=== PATIENT | male | born 1945 | race Caucasian/White ===

== ENCOUNTER 2021-02-07 15:15 | Emergency (ER) | payer MEDICARE, OTHER, SELFPAY ==
[2021-02-07] VITALS (9 sets, daily range): BP systolic 125–159; BP diastolic 66–86; PULSE 83–114; RESP 13–33; TEMP 36.9; O2SAT 95–100; BMI 25.8
--- NOTE | 2021-02-07 15:26 | DI.RAD.S_ITS ---
PROCEDURE: XR CHEST 1V INDICATIONS: dyspnea TECHNIQUE: One view of the chest was acquired. COMPARISON: None. FINDINGS: Surgical changes and devices: None. Lungs and pleura: Subtle bilateral lower lung zone hazy opacities/ground-glass opacities. No focal consolidations. No pleural effusions or pneumothorax. Mediastinum: Mediastinal contours appear normal. Heart size is normal. Bones and chest wall: No suspicious bony lesions. Overlying soft tissues appear unremarkable. IMPRESSION: Subtle bilateral lower lung zone hazy opacities which may represent atelectasis. An infectious or inflammatory process not excluded if clinically appropriate. Early developing pulmonary edema may have a similar appearance. No focal consolidation identified. Dictated by: Christian Hi M.D. on 02/07/2021 at 15:54 Approved by: Christian Hi M.D. on 02/07/2021 at 15:57
--- NOTE | 2021-02-07 15:28 | ED.ARRPALP ---
HPI - Arrhythmia/Palpitations General Chief Complaint: Arrhythmia/Palpitations Stated Complaint: racing heart, SOB, weakness Time Seen by Provider: 02/07/21 15:20 Source: patient Mode of arrival: Wheelchair History of Present Illness HPI narrative: 75-year-old male nonsmoker with reported history of atrial fibrillation presents from it walking clinic in [place] for evaluation of 4 days of dyspnea. He has had no runny nose, sore throat nor fever or chills. He denies any cough. He has had no chest pain or palpitations but does report a racing heart rate. Exertion makes him feel short of breath. He has had no nausea, vomiting or diarrhea. He went to an outside clinic is was found to be in a rapid atrial fibrillation. Patient is not anticoagulated but has had a Watchman procedure. He is chronically in atrial fibrillation and on arrival is dyspneic with heart rate in the 120s Related Data Home Medications Medication Instructions Recorded Confirmed hydrochlorothiazide 12.5 mg tablet 12.5 mg PO DAILY 02/08/21 02/08/21 hydrocodone 5 mg-acetaminophen 325 1 tab PO BID 02/08/21 02/08/21 mg tablet losartan 50 mg tablet 50 mg PO BID 02/08/21 02/08/21 metoprolol succinate 25 mg 50 mg PO DAILY 02/08/21 02/08/21 tablet,extended release 24 hr pramipexole 0.25 mg tablet 0.25 mg PO BID 02/08/21 02/08/21 protriptyline 10 mg tablet 10 mg PO BID 02/08/21 02/08/21 Previous Rx's Medication Instructions Recorded furosemide 40 mg tablet (Lasix) 40 mg PO DAILY #5 tab 02/07/21 Allergies Allergy/AdvReac Type Severity Reaction Status Date / Time No Known Drug Allergies Allergy Verified 02/07/21 15:26 Review of Systems Review of Systems Narrative: GENERAL: Denies chills, fatigue, malaise, fever, sweats. HEENT: Denies sinus pain, ear pain, sore throat, difficulty swallowing, dizziness. RESPIRATORY: Denies dyspnea, cough, wheezing, hemoptysis, sputum. CARDIOVASCULAR: See HPI GASTROINTESTINAL: See HPI : Denies dysuria, frequency, incontinence, hematuria, urinary retention. MUSCULOSKELETAL: denies weakness, joint pain, or bony pain SKIN: Denies rash, skin lesions, or other NEUROLOGIC: Denies weakness, headache, numbness, change in speech, confusion, seizures, incoordination. PSYCHIATRIC: No concerning psychosocial issues. 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 Essential hypertension GERD (gastroesophageal reflux disease) History of stroke associated with blood clotting tendency Lumbar compression fracture Obstructive sleep apnea on CPAP Restless leg syndrome Surgical History (Updated 02/08/21 @ 22:12 by MALOLRIE Yuan) History of left heart catheterization Presence of Watchman left atrial appendage closure device Family History Father Emphysema lung Mother Diabetes mellitus Social History household members: spouse Smoking Status: Never smoker alcohol intake: current Smoking Status: Unknown if ever smoked alcohol intake frequency: holidays/special occasions only Substance Use Type: does not use Exam Narrative Exam Narrative: GENERAL: [75] year old patient appears stated age. Well-developed patient, in mild distress. HEAD: Atraumatic. Normocephalic. EYES: Pupils equal round and reactive. Extraocular motions intact. No scleral icterus. No injection or drainage. ENT: Nose without bleeding, purulent drainage. Throat without erythema, tonsillar hypertrophy or exudate. Airway patent. NECK: Trachea midline. Non tender CARDIOVASCULAR: Rapid and irregular rhythm without murmurs, gallops, or rubs. RESPIRATORY: Clear to auscultation. Breath sounds equal bilaterally. No wheezes, rales, or rhonchi. GASTROINTESTINAL: Abdomen soft, non-tender, nondistended. EXTREMITIES: No edema or joint tenderness. BACK: Nontender without deformity or crepitance. No flank tenderness. NEURO: AOx3. SKIN: No rash or erythema of visible areas Initial Vital Signs Initial Vital Signs: Vital Signs Temperature 98.4 F 02/07/21 15:20 Pulse Rate 108 H 02/07/21 15:20 Respiratory Rate 22 02/07/21 15:20 Blood Pressure 143/84 H 02/07/21 15:20 Pulse Oximetry 98 02/07/21 15:20 Course Course Course Narrative: Patient given above-stated therapies and over the course of the visit he improves tremendously. He is ambulatory in the department and no longer complains of dyspnea at time of discharge. It took a fair amount of time to obtain records from his medical facility but it is noted that he is chronically in atrial fibrillation. He makes a fair amount of dilute urine after Lasix. It seems reasonable that he is in a mild acute congestive heart failure due to increased heart rate over the past few days. Return precautions given and questions answered to his apparent satisfaction Orders Ordered: Discontinued Medications Furosemide (Furosemide 40 Mg/4 Ml Vial) 40 mg IV NOW ONE Stop: 02/07/21 16:41 Last Admin: 02/07/21 17:02 Dose: 40 mg Documented by: THERESA Vital Signs Vital signs: Vital Signs - 8 hr 02/07/21 15:20 Temperature 98.4 F Pulse Rate 108 H Respiratory Rate 22 Blood Pressure 143/84 H Pulse Oximetry 98 MDM - Arrhythmia/Palpitations Lab Data Result diagrams: 02/07/21 15:36 02/07/21 15:36 Labs: Lab Results 02/07/21 02/07/21 02/07/21 Range/Units 15:36 15:36 15:36 WBC 9.1 (4.5-11.0) X10^3/uL RBC 4.44 L (4.5-5.9) X10^6/uL Hgb 13.8 (13.5-17.5) g/dL Hct 40.1 L (41-53) % MCV 90.2 (80-100) fL MCH 31.1 (26-34) PG MCHC 34.5 (30-36) % RDW 13.6 (11.6-14.8) % Plt Count 240 (150-400) X10^3/uL Neut % (Auto) 66.0 (50-75) % Lymph % (Auto) 17.6 L (25-40) % [place] % (Auto) 9.9 (3-14) % Eos % (Auto) 5.9 H (2-4) % Baso % (Auto) 0.6 (0-2) % Neut # (Auto) 6000 (7590-4048) /uL Lymph # (Auto) 1600 (6918-8698) /uL [place] # (Auto) 900 (0-900) /uL Eos # (Auto) 500 H (0-450) /uL Baso # (Auto) 100 (0-100) /uL D-Dimer < 200 (<230) ng/mL Sodium (137-145) mmol/L Potassium (3.4-5.1) mmol/L Chloride (98-107) mmol/L Carbon Dioxide (22-32) mmol/L BUN (9-20) mg/dL Creatinine (0.66-1.25) mg/dL Estimated GFR (>60) mL/min BUN/Creatinine Ratio (6-22) Glucose (80-110) mg/dL Lactate (0.7-2.1) mmol/L Calcium (8.4-10.2) mg/dL Magnesium (1.6-2.3) mg/dL Total Bilirubin (0.2-1.3) mg/dL AST (17-59) IU/L ALT (<50) IU/L Alkaline Phosphatase (38-126) U/L Total Creatine Kinase (55-170) U/L CK-MB (CK-2) CK-MB (CK-2) Rel Index Troponin I (0.01-0.034) ng/mL NT-Pro-B Natriuret Pep 748 H (<450) pg/mL Total Protein (6.3-8.2) g/dL Albumin (3.5-5.0) g/dL Globulin (1.7-4.1) g/dL Albumin/Globulin Ratio (1.0-2.8) Procalcitonin 0.07 (<0.5) ng/mL 02/07/21 02/07/21 Range/Units 15:36 15:36 WBC (4.5-11.0) X10^3/uL RBC (4.5-5.9) X10^6/uL Hgb (13.5-17.5) g/dL Hct (41-53) % MCV (80-100) fL MCH (26-34) PG MCHC (30-36) % RDW (11.6-14.8) % Plt Count (150-400) X10^3/uL Neut % (Auto) (50-75) % Lymph % (Auto) (25-40) % [place] % (Auto) (3-14) % Eos % (Auto) (2-4) % Baso % (Auto) (0-2) % Neut # (Auto) (0871-3417) /uL Lymph # (Auto) (8652-7477) /uL [place] # (Auto) (0-900) /uL Eos # (Auto) (0-450) /uL Baso # (Auto) (0-100) /uL D-Dimer (<230) ng/mL Sodium 139 (137-145) mmol/L Potassium 3.6 (3.4-5.1) mmol/L Chloride 103 (98-107) mmol/L Carbon Dioxide 28 (22-32) mmol/L BUN 19 (9-20) mg/dL Creatinine 0.92 (0.66-1.25) mg/dL Estimated GFR > 60.0 (>60) mL/min BUN/Creatinine Ratio 20.7 (6-22) Glucose 90 (80-110) mg/dL Lactate 1.7 (0.7-2.1) mmol/L Calcium 9.7 (8.4-10.2) mg/dL Magnesium 2.0 (1.6-2.3) mg/dL Total Bilirubin 0.5 (0.2-1.3) mg/dL AST 34 (17-59) IU/L ALT 32 (<50) IU/L Alkaline Phosphatase 67 (38-126) U/L Total Creatine Kinase 46 L (55-170) U/L CK-MB (CK-2) TNP CK-MB (CK-2) Rel Index TNP Troponin I < 0.012 (0.01-0.034) ng/mL NT-Pro-B Natriuret Pep (<450) pg/mL Total Protein 7.6 (6.3-8.2) g/dL Albumin 4.5 (3.5-5.0) g/dL Globulin 3.1 (1.7-4.1) g/dL Albumin/Globulin Ratio 1.5 (1.0-2.8) Procalcitonin (<0.5) ng/mL Discharge Plan Departure Patient Disposition: Home Clinical Impression: Acute dyspnea Instructions: DI for Atrial Fibrillation, DI for Shortness of Breath Activity Restrictions/Additional Instructions: *You have been diagnosed with [shortness of breath due to a mild fluid overload, likely due to increased rate of your atrial fibrillation. Your heart rate has come down, your labs are otherwise very reassuring. *What to do: *Please continue to take your regular medications as directed. [ ] New medication prescriptions sent to your pharmacy: [ ] [x ] New medication written as a paper prescription [ ] No new medications given *Please follow up with your primary care provider in 2-3 days, call for an appointment. Let them know you were seen in the Emergency Department and that we ask that you be seen in follow up. We will electronically transmit a record of today's note if your PCP is in our system *If you do not have a primary care provider please contact the [facility] Resource line at [phone]. They will ask some questions about your medical history and help get you set up with a doctor in the community. *Return to Emergency Department if you should have any new, worsening or concerning symptoms, such as [fever greater than 101 F, shaking chills, worsening pain, persistent vomiting or other bothersome symptoms] Prescriptions: New furosemide [Lasix] 40 mg tablet 40 mg PO DAILY Qty: 5 0RF No Action hydrochlorothiazide 12.5 mg tablet 12.5 mg PO DAILY 0RF pramipexole 0.25 mg tablet 0.25 mg PO BID 0RF losartan 50 mg tablet 50 mg PO BID 0RF metoprolol succinate 25 mg tablet extended release 24 hr 50 mg PO DAILY 0RF protriptyline 10 mg tablet 10 mg PO BID 0RF hydrocodone-acetaminophen 5-325 mg tablet 1 tab PO BID 0RF
[2021-02-07 15:49] LABS: Add Manual Diff / Slide Review NO; Basophils Absolute Auto 100 /uL (0-100); Basophils Percent Auto 0.6 % (0-2); Eosinophils Absolute Auto 500 /uL (0-450); Eosinophils Percent Auto 5.9 % (2-4); Hematocrit 40.1 % (41-53); Hemoglobin 13.8 g/dL (13.5-17.5); Lymphocytes Absolute Auto 1600 /uL (1100-4500); Lymphocytes Percent Auto 17.6 % (25-40); Mean Corpuscular HGB Conc 34.5 % (30-36); Mean Corpuscular Hemoglobin 31.1 PG (26-34); Mean Corpuscular Volume 90.2 fL (80-100); Monocytes Absolute Auto 900 /uL (0-900); Monocytes Percent Auto 9.9 % (3-14); Neutrophils Absolute Auto 6000 /uL (1500-7000); Platelet Count 240 X10^3/uL (150-400); Red Blood Cell Count 4.44 X10^6/uL (4.5-5.9); Red Cell Distribution Width 13.6 % (11.6-14.8); White Blood Cell Count 9.1 X10^3/uL (4.5-11.0)
[2021-02-07 16:07] LABS: Lactate (Lactic Acid) 1.7 mmol/L (0.7-2.1)
[2021-02-07 16:08] LABS: Alanine Aminotransferase 32 IU/L (<50); Albumin 4.5 g/dL (3.5-5.0); Albumin Globulin Ratio 1.5 (1.0-2.8); Alkaline Phosphatase 67 U/L (38-126); Aspartate Aminotransferase 34 IU/L (17-59); BUN Creatinine Ratio 20.7 (6-22); Bilirubin Total 0.5 mg/dL (0.2-1.3); Blood Urea Nitrogen 19 mg/dL (9-20); Calcium 9.7 mg/dL (8.4-10.2); Carbon Dioxide 28 mmol/L (22-32); Chloride 103 mmol/L (98-107); Creatine Kinase 46 U/L (55-170); D Dimer < 200 ng/mL (<230); Estimated Glomerular Filt Rate > 60.0 mL/min (>60); Globulin 3.1 g/dL (1.7-4.1); Glucose 90 mg/dL (80-110); HEMOLYSIS < 15 (0-50); Potassium 3.6 mmol/L (3.4-5.1); Sodium 139 mmol/L (137-145); Total Protein 7.6 g/dL (6.3-8.2)
[2021-02-07 16:18] LABS: NT-proBNP (BNP-Adult 18+) 748 pg/mL (<450)
[2021-02-07 16:19] LABS: Troponin I < 0.012 ng/mL (0.01-0.034)
[2021-02-07 16:25] LABS: Procalcitonin 0.07 ng/mL (<0.5)
[2021-02-07] MEDS: FUROSEMIDE 40 MG/4 ML VIAL IV (17:02)
== END 2021-02-07 18:33 | disposition home or self-care (01) ==
PROVIDERS: Emergency Provider Emergency Medicine
DX: R06.00 Dyspnea, unspecified (principal)
CPT/HCPCS: 36415; 71045; 80053; 82550; 83605; 83735; 83880; 84145; 84484; 85025; 85379; 87040; 93005; 99284; J1940

== ENCOUNTER 2021-02-08 15:22 | Inpatient (IN) | payer MEDICARE, OTHER, SELFPAY ==
[2021-02-08] VITALS (14 sets, daily range): BP systolic 112–140; BP diastolic 59–92; PULSE 88–121; RESP 12–18; TEMP 36–36.4; O2SAT 94–100; BMI 25.8
--- NOTE | 2021-02-08 15:31 | DI.RAD.S_ITS ---
PROCEDURE: XR CHEST 1V INDICATIONS: chest pain TECHNIQUE: One view of the chest was acquired. COMPARISON: [facility], CR, XR CHEST 1V, 02/07/2021, 15:35. FINDINGS: Surgical changes and devices: None. Lungs and pleura: Lungs are clear. No pleural effusions or pneumothorax. Mediastinum: Mediastinal contours appear normal. Heart size is normal. Bones and chest wall: No suspicious bony lesions. Overlying soft tissues appear unremarkable. IMPRESSION: No acute cardiopulmonary abnormality. Dictated by: Ronal Moran M.D. on 02/08/2021 at 15:15 Approved by: Ronal Moran M.D. on 02/08/2021 at 15:16
[2021-02-08 15:52] LABS: Add Manual Diff / Slide Review NO; Basophils Absolute Auto 200 /uL (0-100); Basophils Percent Auto 1.8 % (0-2); Eosinophils Absolute Auto 400 /uL (0-450); Eosinophils Percent Auto 3.9 % (2-4); Hematocrit 41.2 % (41-53); Hemoglobin 14.4 g/dL (13.5-17.5); Lymphocytes Absolute Auto 900 /uL (1100-4500); Lymphocytes Percent Auto 8.8 % (25-40); Mean Corpuscular HGB Conc 34.9 % (30-36); Mean Corpuscular Hemoglobin 31.4 PG (26-34); Mean Corpuscular Volume 90.1 fL (80-100); Monocytes Absolute Auto 400 /uL (0-900); Monocytes Percent Auto 4.3 % (3-14); Neutrophils Absolute Auto 8400 /uL (1500-7000); Neutrophils Percent Auto 81.2 % (50-75); Platelet Count 236 X10^3/uL (150-400); Red Blood Cell Count 4.58 X10^6/uL (4.5-5.9); Red Cell Distribution Width 13.4 % (11.6-14.8); White Blood Cell Count 10.3 X10^3/uL (4.5-11.0)
[2021-02-08 16:01] LABS: Alanine Aminotransferase 31 IU/L (<50); Albumin 4.5 g/dL (3.5-5.0); Albumin Globulin Ratio 1.5 (1.0-2.8); Alkaline Phosphatase 71 U/L (38-126); Aspartate Aminotransferase 31 IU/L (17-59); BUN Creatinine Ratio 21.4 (6-22); Bilirubin Total 0.6 mg/dL (0.2-1.3); Blood Urea Nitrogen 22 mg/dL (9-20); Calcium 9.5 mg/dL (8.4-10.2); Carbon Dioxide 30 mmol/L (22-32); Chloride 101 mmol/L (98-107); Creatine Kinase 34 U/L (55-170); Estimated Glomerular Filt Rate > 60.0 mL/min (>60); Globulin 3.1 g/dL (1.7-4.1); Glucose 127 mg/dL (80-110); HEMOLYSIS < 15 (0-50); Lipase 118 U/L (23-300); Magnesium 1.8 mg/dL (1.6-2.3); Potassium 3.4 mmol/L (3.4-5.1); Sodium 139 mmol/L (137-145); Total Protein 7.6 g/dL (6.3-8.2)
[2021-02-08 16:10] LABS: NT-proBNP (BNP-Adult 18+) 782 pg/mL (<450)
[2021-02-08 16:12] LABS: Troponin I < 0.012 ng/mL (0.01-0.034)
[2021-02-08 16:45] LABS: COVID19 -Nasal RAPID Negative (Negative)
--- NOTE | 2021-02-08 16:48 | ED_ITS ---
HPI - Syncope General Chief Complaint: Syncope Stated Complaint: Near syncope/ fall Time Seen by Provider: 02/08/21 15:38 Source: patient Mode of arrival: Ambulatory Limitations: no limitations History of Present Illness HPI narrative: This is a 75-year-old male who was seen here yesterday. Patient states he yeste rday for shortness of breath. He was in AFib yesterday and was noted to have a elevated heart rate but improved to the 90s during his stay. He is on AFib he has a watch min, and had clot retrieval for a left-sided stroke 4 years ago. He has no paroxysmal atrial fibrillation which has become increasingly more frequent. Patient is on metoprolol, protriptyline, [place] twice daily for chronic back pain and compression fractures, pramipexole, losartan, hydrochlorothiazide and aspirin 81 mg daily. He has not ever had any cardiac stents. Today at home he had his Lasix 40 mg prescribed from the ER last night. He got up at about 215 to go the bathroom and passed out. He was sitting on the toilet when he urinated. His was with him and caught him lowering him to the ground. He did have a loss of consciousness she states for a couple seconds. He lost tone completely. He shortly recovered. No headache, no chest pain. He does have shortness of breath with exertion, no nausea vomiting, no diarrhea constipation, no abdominal pain. No new swelling in his extremities. No fevers, cough cold or congestion. Patient did have a dose of Lasix yesterday here in the emergency department as well. His states that he seems to be very sensitive to his fluid status and has passed out in the past but not recently. He does not feel lightheaded while sitting in the bed but states when he sits up or stands upright he does. His primary care is Dr. Gambino in [facility] but they do live locally part-time during the year. His inside sales advertising executive is at an outside facility. Related Data Previous Rx's Medication Instructions Recorded furosemide 40 mg tablet (Lasix) 40 mg PO DAILY #5 tab 02/07/21 Allergies Allergy/AdvReac Type Severity Reaction Status Date / Time No Known Drug Allergies Allergy Verified 02/07/21 15:26 Review of Systems Review of Systems ROS Unobtainable: All systems reviewed & are unremarkable except as noted in HPI and below Patient History Social History Smoking Status: Unknown if ever smoked Smoking Status: Unknown if ever smoked alcohol intake frequency: holidays/special occasions only Substance Use Type: does not use Exam Narrative Exam Narrative: GEN: well nourished, well appearing male, alert and oriented x 3, patient appears to be in mild distress. HEENT: Atraumatic, pupils are equal round reactive to light, extraocular movements are intact, nares are clear, no facial droop. HEART: Irregularly irregular and tachycardic rate and rhythm without murmur, clicks, rubs. Pulses are equal in upper and lower extremities LUNGS:Lungs clear to auscultation, no wheezes, rales, crackles, chest moves symmetrically ABD:bowel sounds normal, soft, non-tender, no guarding, rebound, rigidity, no masses noted, no hepatosplenomegaly :No CVA tenderness MSCL: Non-tender, no muscle atrophy,full range of motion NEURO:CN 2-12 intact, sensation normal SKIN: No rash, erythema or other skin changes noted. Initial Vital Signs Initial Vital Signs: Vital Signs Pulse Rate 109 H 02/08/21 15:27 Respiratory Rate 17 02/08/21 15:27 Blood Pressure 112/59 L 02/08/21 15:27 Course Orders Ordered: ED Orders 02/08/21 15:31 XR chest 1V Stat EKG-12 Lead Stat 02/08/21 15:44 BNP [NT-proBNP (BNP-Adult 18+)] Stat Complete Blood Count AUTO DIFF Stat Comprehensive Metabolic Panel Stat Lipase Stat Magnesium Stat Troponin & CK Cardiac Panel Stat 02/08/21 16:19 COVID19 -Nasal swab/Pre-Proc Stat 02/08/21 18:05 COVID19 - ADMIT (VETERINARY TECHNOLOGIST swab/PCR) Stat Discontinued Medications Metoprolol Tartrate (Metoprolol Tartrate 5 Mg/5 Ml Inj) 5 mg IV NOW ONE Stop: 02/08/21 17:52 Last Admin: 02/08/21 17:54 Dose: 5 mg Documented by: CARMEN Consultations Consultation #1: Dr. Santiago, accepts for observation for syncope in the setting of afib with RVR. Time: 17:45 Vital Signs Vital signs: Vital Signs - 8 hr 02/08/21 15:27 02/08/21 15:28 02/08/21 15:30 Temperature Pulse Rate 109 H 109 H 112 H Respiratory Rate 17 13 Blood Pressure 112/59 L 117/71 Pulse Oximetry 94 02/08/21 15:31 02/08/21 16:00 02/08/21 16:30 Temperature 97.6 F Pulse Rate 113 H 111 H Respiratory Rate 18 18 Blood Pressure 132/61 Pulse Oximetry 98 98 97 02/08/21 16:33 02/08/21 17:00 02/08/21 17:30 Temperature Pulse Rate 121 H 116 H 115 H Respiratory Rate 17 12 12 Blood Pressure 123/92 H 139/71 140/69 Pulse Oximetry 98 97 99 02/08/21 17:57 02/08/21 18:00 Temperature Pulse Rate 103 H 93 H Respiratory Rate 18 Blood Pressure 117/69 118/64 Pulse Oximetry 97 MDM - Syncope Lab Data Result diagrams: 02/08/21 15:44 02/08/21 15:44 Labs: Lab Results 02/08/21 02/08/21 02/08/21 Range/Units 15:44 15:44 15:44 WBC 10.3 (4.5-11.0) X10^3/uL RBC 4.58 (4.5-5.9) X10^6/uL Hgb 14.4 (13.5-17.5) g/dL Hct 41.2 (41-53) % MCV 90.1 (80-100) fL MCH 31.4 (26-34) PG MCHC 34.9 (30-36) % RDW 13.4 (11.6-14.8) % Plt Count 236 (150-400) X10^3/uL Neut % (Auto) 81.2 H (50-75) % Lymph % (Auto) 8.8 L (25-40) % [place] % (Auto) 4.3 (3-14) % Eos % (Auto) 3.9 (2-4) % Baso % (Auto) 1.8 (0-2) % Neut # (Auto) 8400 H (4112-3723) /uL Lymph # (Auto) 900 L (1568-9883) /uL [place] # (Auto) 400 (0-900) /uL Eos # (Auto) 400 (0-450) /uL Baso # (Auto) 200 H (0-100) /uL Sodium 139 (137-145) mmol/L Potassium 3.4 (3.4-5.1) mmol/L Chloride 101 (98-107) mmol/L Carbon Dioxide 30 (22-32) mmol/L BUN 22 H (9-20) mg/dL Creatinine 1.03 (0.66-1.25) mg/dL Estimated GFR > 60.0 (>60) mL/min BUN/Creatinine Ratio 21.4 (6-22) Glucose 127 H (80-110) mg/dL Calcium 9.5 (8.4-10.2) mg/dL Magnesium 1.8 (1.6-2.3) mg/dL Total Bilirubin 0.6 (0.2-1.3) mg/dL AST 31 (17-59) IU/L ALT 31 (<50) IU/L Alkaline Phosphatase 71 (38-126) U/L Total Creatine Kinase 34 L (55-170) U/L CK-MB (CK-2) TNP CK-MB (CK-2) Rel Index TNP Troponin I < 0.012 (0.01-0.034) ng/mL NT-Pro-B Natriuret Pep 782 H (<450) pg/mL Total Protein 7.6 (6.3-8.2) g/dL Albumin 4.5 (3.5-5.0) g/dL Globulin 3.1 (1.7-4.1) g/dL Albumin/Globulin Ratio 1.5 (1.0-2.8) Lipase 118 (23-300) U/L SARS-CoV-2 (PCR) (Negative) 02/08/21 Range/Units 16:19 WBC (4.5-11.0) X10^3/uL RBC (4.5-5.9) X10^6/uL Hgb (13.5-17.5) g/dL Hct (41-53) % MCV (80-100) fL MCH (26-34) PG MCHC (30-36) % RDW (11.6-14.8) % Plt Count (150-400) X10^3/uL Neut % (Auto) (50-75) % Lymph % (Auto) (25-40) % [place] % (Auto) (3-14) % Eos % (Auto) (2-4) % Baso % (Auto) (0-2) % Neut # (Auto) (3485-3571) /uL Lymph # (Auto) (2106-7745) /uL [place] # (Auto) (0-900) /uL Eos # (Auto) (0-450) /uL Baso # (Auto) (0-100) /uL Sodium (137-145) mmol/L Potassium (3.4-5.1) mmol/L Chloride (98-107) mmol/L Carbon Dioxide (22-32) mmol/L BUN (9-20) mg/dL Creatinine (0.66-1.25) mg/dL Estimated GFR (>60) mL/min BUN/Creatinine Ratio (6-22) Glucose (80-110) mg/dL Calcium (8.4-10.2) mg/dL Magnesium (1.6-2.3) mg/dL Total Bilirubin (0.2-1.3) mg/dL AST (17-59) IU/L ALT (<50) IU/L Alkaline Phosphatase (38-126) U/L Total Creatine Kinase (55-170) U/L CK-MB (CK-2) CK-MB (CK-2) Rel Index Troponin I (0.01-0.034) ng/mL NT-Pro-B Natriuret Pep (<450) pg/mL Total Protein (6.3-8.2) g/dL Albumin (3.5-5.0) g/dL Globulin (1.7-4.1) g/dL Albumin/Globulin Ratio (1.0-2.8) Lipase (23-300) U/L SARS-CoV-2 (PCR) Negative (Negative) Imaging Data Chest x-ray: Radiologist's Impression: [address] [address] XRay Report Signed Patient: Antoine Reyes MR#: [id number] : 1945 Acct:[id number] Age/Sex: 75 / M Date of Service: 02/08/21 Loc: ED Accession Number: [id number] ?? Procedure: XR chest 1V Ordering Provider: Krystal Jameson D.O. PROCEDURE:? XR CHEST 1V ? INDICATIONS:? chest pain ? TECHNIQUE:? One view of the chest was acquired.? ? COMPARISON:? [facility], CR, XR CHEST 1V, 02/07/2021, 15:35. ? FINDINGS:? ? Surgical changes and devices:? None.? ? Lungs and pleura:? Lungs are clear.? No pleural effusions or pneumothorax.? ? Mediastinum:? Mediastinal contours appear normal.? Heart size is normal.? ? Bones and chest wall:? No suspicious bony lesions.? Overlying soft tissues appear unremarkable.? ? IMPRESSION:? No acute cardiopulmonary abnormality. ? ? Dictated by: Ronal Mroan M.D. on 02/08/2021 at 15:15 ? ? Approved by: Ronal Moran M.D. on 02/08/2021 at 15:16? ECG Data Attestation: I personally reviewed and interpreted this ECG as follows: Prior ECG tracings: available for review Interpretation: AFib with RVR, rate of 108 QRS [address] QTC [address] No acute ST elevation or depression. Patient has prior EKG from yesterday which does not show any acute ST changes. MDM Narrative Medical decision making narrative: This is a 75-year-old male in AFib with RVR who was seen yesterday with elevated BNP given a dose of IV Lasix and took a secondary dose this morning. Ambulating to the bathroom he became short of breath with exertion, and had a syncopal episode while sitting on the toilet. Patient is in AFib with RVR. Troponin is negative, he had a D-dimer yesterday which was negative so not repeated today. BNP is still elevated slightly higher than yesterday. He had a 500 cc bolus. Discussed with hospitalist for syncopal episode in the setting of AFib with RVR for observation and likely ECHO available tomorrow. Dr. Santiago kindly accepts. Discharge Plan Departure Patient Disposition: Admitted as Observation Clinical Impression: Atrial fibrillation with rapid ventricular response, Syncope
[2021-02-08] MEDS: METOPROLOL TARTRATE 5 MG/5 ML INJ IV (17:54)
[2021-02-08 19:01] LABS: COVID19 - ADMIT (NP swab/PCR) Negative (Negative)
--- NOTE | 2021-02-08 19:24 | DI.ECHO.S_ITS ---
[facility]---------+ [facility] +---------+ : : [address] : [address] : : : : [id number] : : : : Phone: [phone]+ Echocardiogram Report + + :Name: NIXON EDWARDS Study Date: 02/09/2021 Height: 69 in : :[facility] ReadingLocation: Weight: 175 lb : : Gender: Male BSA: 2.0 m2 : :: 1945 Age: 75 yrs BP: 133/70 mmHg: :Reason For Study: AFIB : :Ordering Physician: JONATHAN, : :IVELISSE Performed By: Dinorah Hidalgo : :Referring: IVELISSE CASTILLO : + + Interpretation Summary Afib with rapid ventricular response; heart rate is 100-125 bpm. Normal LV size; mild concentric LVH; normal wall motion and LV systolic function. Mild LA enlargement; otherwise normal chamber sizes. Aortic sclerosis without stenosis; it is a trileaflet structure without significant calcifications. There is moderate associated aortic regurgitation. Ascending aorta is moderately dilated (4.3 cm diameter). No prior study available for comparison. Procedure: A two-dimensional transthoracic echocardiogram with color flow and Doppler was performed. The study quality was technically adequate. There is no prior echocardiogram noted for this patient. The patient was in atrial fibrillation with heart rates between 100-125 bpm during the exam. Left Ventricle: The left ventricle is normal in size. There is mild concentric left ventricular hypertrophy. The ejection fraction is estimated to be 60-65%. Right Ventricle: The right ventricle grossly appears normal in size with probable normal systolic function. Atria: The left atrium is mildly dilated. Right atrial size is normal. There is no Doppler evidence for an interatrial shunt. Mitral Valve: The mitral valve is normal in structure and function. There is trace mitral regurgitation. Aortic Valve: The aortic valve opens well. There is no aortic valve stenosis. There is mild to moderate aortic regurgitation. Tricuspid Valve: The tricuspid valve is normal in structure and function. There is trace tricuspid regurgitation. Pulmonic Valve: The pulmonic valve is not well seen, but is grossly normal. There is no pulmonic valvular regurgitation. Great Vessels: The aortic root is normal size. The ascending aorta is moderately enlarged. The IVC is of normal diameter and collapses greater than 50% with a sniff. This suggests a low right atrial pressure of 3 mm Hg. Pericardium/ Pleura There is no pericardial effusion. There is no pleural effusion. MMode/2D Measurements & Calculations LVIDd: 3.9 cm LVOT diam: 2.0 cm LVIDs: 2.7 cm Ao root diam: 3.3 cm FS: 31.6 % asc Aorta Diam: 4.3 cm IVSd: 1.1 cm LVPWd: 1.2 cm LV chinchilla. diameter/BSA (cm/m^2): 2.0 LV sys. diameter/BSA (cm/m^2): 1.4 LA A2 area: 21.3 cm2 RA long axis: 4.8 cm LA A4 area: 18.4 cm2 RA area: 15.1 cm2 LA length (vol): 4.8 cm RA vol: 40.1 ml LA vol: 69.0 ml RA : 20.5 ml/m2 LA vol index: 35.4 ml/m2 IVC diam: 1.3 cm RVD1 (basal): 3.4 cm Doppler Measurements & Calculations Ao V2 max: 134.4 cm/sec LVOT Max Sujit: 129.0 cm/sec Ao V2 mean: 92.6 cm/sec LV V1 max P.7 mmHg Ao max P.2 mmHg LV V1 VTI: 17.0 cm Ao mean P.8 mmHg DINESH(I,D): 2.9 cm2 Ao V2 VTI: 18.8 cm DINESH(V,D): 3.1 cm2 sev ratio: 0.91 DINESH indexed to BSA (cm^2/m^2): 1.5 MV E max sujit: 80.3 cm/sec PA V2 max: 119.9 cm/sec MV A max sujit: 1.2 cm/sec PA V2 mean: 88.0 cm/sec MV E/A: 66.4 PA mean P.3 mmHg Med Peak E' Sujit: 8.0 cm/sec PA pr(Accel): 44.3 mmHg E/E' med: 10.1 Lat Peak E' Sujit: 12.4 cm/sec E/E' lat: 6.5 E/e' average: 8.3 MV dec time: 0.11 sec SV(LVOT): 54.6 ml Electronically signed by: Kasia Dhillon M.D. on Reading Physician:02/09/2021 02:33 PM
[2021-02-08 19:52] LABS: INR 1.2 (0.9-1.3)
[2021-02-08 19:55] LABS: PTT Partial Thromboplastin Tim 37 SECONDS (26.4-36.2)
[2021-02-08 20:06] LABS: Ethanol (ETOH) < 10 mg/dL
[2021-02-08 20:35] LABS: Thyroid Stimulating Hormone 0.922 uIU/mL (0.47-4.68)
--- NOTE | 2021-02-08 21:11 | PM.HP.1 ---
History of Present Illness History of Present Illness Date Patient Seen: 02/08/21 Time Patient Seen: 19:53 Chief complaint: Near syncope/ fall Narrative: Antoine Reyes ?is a 75-year-old male with a history of essential hypertension, LIA/CPAP, proximal atrial fibrillation with watchman device, and had clot retrieval for a left-sided stroke 4 years ago, chronic pain from spinal fx, and GERD. Was seen in ED yesterday for SOB and he was in AFib with an elevated heart rate but improved to the 90s during his stay.?His paroxysmal atrial fibrillation has become increasingly more frequent recently.? Patient is on metoprolol, protriptyline, Levering twice daily for chronic back pain and compression fractures, pramipexole, losartan, hydrochlorothiazide and aspirin 81 mg daily.? He has not ever had any cardiac stents.? Today at home he had his Lasix 40 mg prescribed from the ED last night.? He got up at about 215 to go the bathroom and passed out.? He was sitting on the toilet when he urinated.? His was with him and caught him lowering him to the ground.? He did have a loss of consciousness she states for a couple seconds.? He lost tone completely.? He shortly recovered.? He did not hit his head. He denies headache, chest pain.? He does have shortness of breath with exertion, but is resolved upon admit, denies changes in vision, weakness, abd pain, nausea vomiting, diarrhea, constipation, urinary symptoms, has had UTI 's in the past.? He denies swelling in his extremities, fevers, cough, cold, congestion, hematemesis, hematuria, or melena, recent illness injury or trauma. Patient did have a dose of Lasix yesterday here in the ED 40mg as well as his home dose of Lasix.? His states that he seems to be very sensitive to his fluid status and has passed out in the past due to volume depletion r/t lasix tx.? He does not feel lightheaded while sitting in the bed but states when he sits up or stands upright he does.? His primary care is Dr. Gambino, and Hotel Security Officer Dr. Mckinney in [facility], they have recently made [place] their multimedia designer home & need Cardiology & PCP referrals. Upon admit patient is resting comfortably in bed denies any signs or symptoms at this time. Vital signs upon admit are stable temp 97.6?, BP 118/64, HR 93, R 18, O2 saturation 97% on room air. Patient presented to the ED with a heart rate 110-130 and was given 5 mg of IV metoprolol. Patient's CBC was unremarkable with the exception of neut# a 1400,Baso # 200. Chemistries were all WNL, patient's troponin x2 were WNL, BNP 782 only a mild elevation when adjusted for age. No edema or fluid overloaded appreciated. Bhanu Vasc score: 4. Chest x-ray negative for any acute cardiopulmonary processes, EKG I personally reviewed in ED atrial fibrillation with RVR with a rate of 108. Patient admitted for syncope likely related to a combination of volume depletion from Lasix and atrial fibrillation with RVR, possible heart failure exacerbation. 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 Essential hypertension GERD (gastroesophageal reflux disease) History of stroke associated with blood clotting tendency Lumbar compression fracture Obstructive sleep apnea on CPAP Restless leg syndrome Surgical History (Updated 02/08/21 @ 22:12 by ALFREDO Yuan-PETRONA) History of left heart catheterization Presence of Watchman left atrial appendage closure device Family & Social History Family History Father Emphysema lung Mother Diabetes mellitus Social History: household members spouse Prior Living Arrangements House Safety & Behavioral: Feels Safe in Current Yes Environment Been Physically Hurt or No Threatened By a Person Suicidal Ideation Description None Suicide Plan Description No Plan Tobacco & Substance use: Smoking Status Never smoker alcohol intake current alcohol intake frequency holiday/special occasion Substance Use Type does not use Meds Home Medications and Allergies Home Medications Medication Instructions Recorded Confirmed Type furosemide 40 mg tablet (Lasix) 40 mg PO DAILY #5 tab 02/07/21 02/08/21 Rx hydrochlorothiazide 12.5 mg tablet 12.5 mg PO DAILY 02/08/21 02/08/21 History hydrocodone 5 mg-acetaminophen 325 1 tab PO BID 02/08/21 02/08/21 History mg tablet losartan 50 mg tablet 50 mg PO BID 02/08/21 02/08/21 History metoprolol succinate 25 mg 50 mg PO DAILY 02/08/21 02/08/21 History tablet,extended release 24 hr pramipexole 0.25 mg tablet 0.25 mg PO BID 02/08/21 02/08/21 History protriptyline 10 mg tablet 10 mg PO BID 02/08/21 02/08/21 History Allergies Allergy/AdvReac Type Severity Reaction Status Date / Time No Known Drug Allergies Allergy Verified 02/07/21 15:26 Review of Systems Review of Systems Narrative: All 12 point systems reviewed with the patient and are negative except otherwise documented. Exam Vital Signs (past 8 hours): - 02/08/21 15:27 02/08/21 15:28 02/08/21 15:30 Temperature Pulse Rate 109 H 109 H 112 H Respiratory Rate 17 13 Blood Pressure 112/59 L 117/71 Pulse Oximetry 94 02/08/21 15:31 02/08/21 16:00 02/08/21 16:30 Temperature 97.6 F Pulse Rate 113 H 111 H Respiratory Rate 18 18 Blood Pressure 132/61 Pulse Oximetry 98 98 97 02/08/21 16:33 02/08/21 17:00 02/08/21 17:30 Temperature Pulse Rate 121 H 116 H 115 H Respiratory Rate 17 12 12 Blood Pressure 123/92 H 139/71 140/69 Pulse Oximetry 98 97 99 02/08/21 17:57 02/08/21 18:00 02/08/21 20:11 Temperature 96.8 F L Pulse Rate 103 H 93 H 88 Respiratory Rate 18 14 Blood Pressure 117/69 118/64 123/66 Pulse Oximetry 97 95 Oxygen Delivery Method Room Air Narrative Exam Narrative: General: Patient is a well-developed, well-nourished pleasant male in no distress at this time, with his at bedside. HEENT: Normocephalic, atraumatic, extraocular muscles intact, oral pharynx is clear and mucous membranes are moist. Neck is supple and symmetric, trachea is midline, no adenopathy, no thyroid enlargement, nontender, no masses palpated. Negative for JVD Chest: Normal AP diameter and contour without kyphoscoliosis, no nasal flaring, retractions, or tachypneic labored Lungs: Auscultation of all lung hernandez are clear without adventitious sounds, wheezes, rhonchi, or rales. Cardio: Irregular rate and rhythm without murmur, rubs, or gallops, no carotid bruit, no cardiac pulsations present. Abdomen: Soft nontender, negative for organomegaly, or masses. Bowel sounds are present in all 4 quadrants without guarding or rebound, no CVA tenderness. Musculoskeletal: Muscle strength and tone are equal within normal limits, no deformity, crepitus, effusions, cyanosis, clubbing or edema present. Full range of motion intact radial and pedal pulses are normal. Skin: Warm dry and intact without rashes, ulcerations or petechiae. Neuro: Alert and orientated x3, strength is +5/5 in all extremities, sensation to touch intact, no gross deficits noted of cranial nerves. Psych: Patient has a well-kept appearance, appropriate affect, mental status attitude are appropriate for age. The patients appears to provide the care & critical thinking required for health management. The patient answers questions appropriately, but does not appear to engage in critical thinking or decision making. Objective Labs Result Diagrams: 02/08/21 15:44 02/08/21 15:44 Labs: Laboratory Results - last 24 hr 02/08/21 02/08/21 02/08/21 15:44 15:44 15:44 WBC 10.3 RBC 4.58 Hgb 14.4 Hct 41.2 MCV 90.1 MCH 31.4 MCHC 34.9 RDW 13.4 Plt Count 236 Neut % (Auto) 81.2 H Lymph % (Auto) 8.8 L Bell % (Auto) 4.3 Eos % (Auto) 3.9 Baso % (Auto) 1.8 Neut # (Auto) 8400 H Lymph # (Auto) 900 L Bell # (Auto) 400 Eos # (Auto) 400 Baso # (Auto) 200 H PT INR APTT Sodium 139 Potassium 3.4 Chloride 101 Carbon Dioxide 30 BUN 22 H Creatinine 1.03 Estimated GFR > 60.0 BUN/Creatinine Ratio 21.4 Glucose 127 H Calcium 9.5 Magnesium 1.8 Total Bilirubin 0.6 AST 31 ALT 31 Alkaline Phosphatase 71 Total Creatine Kinase 34 L CK-MB (CK-2) TNP CK-MB (CK-2) Rel Index TNP Troponin I < 0.012 NT-Pro-B Natriuret Pep 782 H Total Protein 7.6 Albumin 4.5 Globulin 3.1 Albumin/Globulin Ratio 1.5 Lipase 118 TSH Ethyl Alcohol SARS-CoV-2 (PCR) 02/08/21 02/08/21 02/08/21 15:44 15:44 15:44 WBC RBC Hgb Hct MCV MCH MCHC RDW Plt Count Neut % (Auto) Lymph % (Auto) Bell % (Auto) Eos % (Auto) Baso % (Auto) Neut # (Auto) Lymph # (Auto) Bell # (Auto) Eos # (Auto) Baso # (Auto) PT 13.0 H INR 1.2 APTT 37 H Sodium Potassium Chloride Carbon Dioxide BUN Creatinine Estimated GFR BUN/Creatinine Ratio Glucose Calcium Magnesium Total Bilirubin AST ALT Alkaline Phosphatase Total Creatine Kinase CK-MB (CK-2) CK-MB (CK-2) Rel Index Troponin I NT-Pro-B Natriuret Pep Total Protein Albumin Globulin Albumin/Globulin Ratio Lipase TSH 0.922 Ethyl Alcohol < 10 SARS-CoV-2 (PCR) 02/08/21 02/08/21 16:19 18:05 WBC RBC Hgb Hct MCV MCH MCHC RDW Plt Count Neut % (Auto) Lymph % (Auto) Bell % (Auto) Eos % (Auto) Baso % (Auto) Neut # (Auto) Lymph # (Auto) Bell # (Auto) Eos # (Auto) Baso # (Auto) PT INR APTT Sodium Potassium Chloride Carbon Dioxide BUN Creatinine Estimated GFR BUN/Creatinine Ratio Glucose Calcium Magnesium Total Bilirubin AST ALT Alkaline Phosphatase Total Creatine Kinase CK-MB (CK-2) CK-MB (CK-2) Rel Index Troponin I NT-Pro-B Natriuret Pep Total Protein Albumin Globulin Albumin/Globulin Ratio Lipase TSH Ethyl Alcohol SARS-CoV-2 (PCR) Negative Negative Assessment & Plan Assessment & Plan narrative: Antoine Nuñezis a 75-year-old male with a history of essential hypertension, LIA/CPAP, proximal atrial fibrillation with watchman device, and had clot retrieval for a left-sided stroke 4 years ago, chronic pain from spinal fx, and GERD. Was seen in ED yesterday for SOB, his paroxysmal atrial fibrillation has become increasingly more frequent recently.? Patient had a syncopal episode yesterday at home in the bathroom following a dose of IV legs is 640 mg in ED and his home dosage of 40 mg of oral Lasix. The patient has a very small threshold for volume depletion, and has had syncopal episodes in the past related to overdosing of Lasix. Patient admitted for syncopal echo episode likely related to volume depletion with increasing episodes of paroxysmal atrial fibrillation with RVR. 1. Syncopal episode, witnessed, acute, likely secondary to volume depletion from over medication of Lasix, in combination with exacerbating proximal atrial fibrillation with RVR with watchman device, acute on chronic, present on admission -it is also possible that the patient has developed mild heart failure, exacerbation. BNP 782 only mild elevation when adjusted for age. -will hold Lasix, HCTZ due to likely over diuresis and at this time as I can appreciate no fluid overload/edema. Hold protriptyline- as its side effects include cardiac arrhythmia and hypotension. I discussed holding all these medications with the patient and his and they agreed to plan of care. Patient also has a history of UTIs, have ordered urine culture-patient denies any signs or symptoms at this time. -Fluid restriction 2000cc/Qday -until HF can be further assessed with echo. -ortho stats ordered q.8 hours, mild hydration LR 20 cc/HR x1 bag- for volume depletion. -echo ordered for tomorrow, patient requires referral to Dr. Keating Cardiology and PCP. -patient's last echo in [facility] approximately 6 months ago, no records on file. Consult ordered for Dr. Keating- will need referrals for both on d/c. -Eliquis 5 mg b.i.d., ASA 81 mg. Repeat troponin BNP CBC BMP in a.m. also a.m. cortisol ordered if below range please order stem test to rule out adrenal insufficiency. -will monitor electrolytes. -patient put on strict fall precautions, 2 person assist up to the commode, PT Consult ordered. -continue patient's losartan and metoprolol in a.m.-recommend stopping patient's HCTZ and protriptyline. 2. Essential hypertension, chronic, present on admission -continue losartan in a.m., stop HCTZ 3. 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 4. Restless leg syndrome, chronic, present on admission -continue patient's Mirapex 5. Chronic low back pain secondary to compression fractures of the lumbar, chronic, present on admission -continue patient's hydrocodone 5/325 b.i.d. 6. GERD, chronic, present on admission -will substitute Protonix for patient's omeprazole Code status: Full Surrogate decision maker: Spouse Sivan CASTRO PCR: Negative COVID vaccination: Pfizer x3 2020 DVT/VTE prophylaxis: Patient has Watchman device, Eliquis 5 mg b.i.d., ASA 81 mg and SCDs Disposition: Patient admitted for observation, expected length of stay less than 2 midnights. I have utilized all available immediate resources to obtain, update, or review the patient's current medications. I confirmed that the patient's advanced care plan is present, Code status is documented and/or surrogate decision maker is listed in the patient's medical record. Time Spent With Patient Critical Care time: I spent a total of [] minutes of critical care time on this patient's care today; this time is exclusive of procedural time. Quality VTE Deep Vein Thrombosis/Pulmonary Embolism Present on Admission: No
[2021-02-08] MEDS: LACTATED RINGERS 1,000 ML 20 ML IV (21:55)
[2021-02-08] MEDS: SENNOSIDES 8.6 MG TABLET 17.2 MG PO (21:56)
[2021-02-08] MEDS: APIXABAN 5 MG TABLET PO (21:56)
[2021-02-08] MEDS: PRAMIPEXOLE 0.25 MG TABLET PO (21:56)
[2021-02-08] MEDS: HYDROCODONE/ACET 5/325 TABLET 1 TAB PO (21:56)
[2021-02-09] VITALS (19 sets, daily range): BP systolic 112–145; BP diastolic 58–83; PULSE 78–155; RESP 15–17; TEMP 36.1–36.7; O2SAT 94–100
[2021-02-09 04:57] LABS: Add Manual Diff / Slide Review NO; Basophils Absolute Auto 100 /uL (0-100); Basophils Percent Auto 0.7 % (0-2); Eosinophils Absolute Auto 600 /uL (0-450); Eosinophils Percent Auto 6.8 % (2-4); Hematocrit 39.3 % (41-53); Hemoglobin 13.6 g/dL (13.5-17.5); Lymphocytes Absolute Auto 2100 /uL (1100-4500); Mean Corpuscular HGB Conc 34.6 % (30-36); Mean Corpuscular Hemoglobin 31.1 PG (26-34); Mean Corpuscular Volume 89.9 fL (80-100); Monocytes Absolute Auto 900 /uL (0-900); Monocytes Percent Auto 10.2 % (3-14); Neutrophils Absolute Auto 5000 /uL (1500-7000); Neutrophils Percent Auto 58.3 % (50-75); Platelet Count 216 X10^3/uL (150-400); Red Blood Cell Count 4.37 X10^6/uL (4.5-5.9); Red Cell Distribution Width 13.4 % (11.6-14.8); White Blood Cell Count 8.7 X10^3/uL (4.5-11.0)
[2021-02-09 05:06] LABS: BUN Creatinine Ratio 25.7 (6-22); Blood Urea Nitrogen 26 mg/dL (9-20); Calcium 9.1 mg/dL (8.4-10.2); Carbon Dioxide 31 mmol/L (22-32); Chloride 103 mmol/L (98-107); Cholesterol 190 mg/dL (140-199); Estimated Glomerular Filt Rate > 60.0 mL/min (>60); Glucose 106 mg/dL (80-110); HDL Cholesterol 40 mg/dL (40-60); HEMOLYSIS < 15 (0-50); LDL Cholesterol Calculated 130 mg/dL (<100); Potassium 3.3 mmol/L (3.4-5.1); Sodium 139 mmol/L (137-145); Triglycerides 102 mg/dL (35-150)
[2021-02-09 05:07] LABS: Magnesium 1.8 mg/dL (1.6-2.3)
[2021-02-09 05:17] LABS: NT-proBNP (BNP-Adult 18+) 636 pg/mL (<450); Troponin I 0.014 ng/mL (0.01-0.034)
[2021-02-09 05:38] LABS: Cortisol AM (Before 10AM) 3.58 ug/dL (4.46-22.7)
[2021-02-09] MEDS: PANTOPRAZOLE DR 20 MG TABLET PO (06:38)
[2021-02-09] MEDS: LOSARTAN 50 MG TABLET PO ×2 (06:38→09:09)
[2021-02-09] MEDS: POTASSIUM CHLORIDE IN WATER 10 MEQ/100 ML PIGGYBACK 100 MEQ IV ×2 (06:46→07:32)
[2021-02-09] MEDS: HYDROCODONE/ACET 5/325 TABLET 1 TAB PO ×2 (09:09→20:28)
[2021-02-09] MEDS: ASPIRIN EC 81 MG TABLET PO (09:09)
[2021-02-09] MEDS: PRAMIPEXOLE 0.25 MG TABLET PO ×2 (09:09→20:28)
[2021-02-09] MEDS: METOPROLOL ER 25 MG TABLET 50 MG PO (09:10)
[2021-02-09] MEDS: SODIUM CHLORIDE 0.9% FLUSH 10 ML IV ×2 (09:13→19:50)
[2021-02-09] MEDS: POTASSIUM CHLORIDE 20 MEQ TAB PO ×2 (09:13→15:11)
--- NOTE | 2021-02-09 12:07 | CM.DANOTE ---
DCP assessment: Patient is a 75 yr old male who was here for Syncope episode. CM met wit the patient and his at the bedside and explained role. patient was alert and oriented x4 during CM visit. patient currently lives in [place] single level home [place] with his Sivan. patient does drive but his does most of the driving on a regular basis. patient is Independent with all ADLs at baseline and would like to DC home with his today. I: Medicare and [facility] Plan: DC home with when medically stable. no Identified DC planning needs at this time. Beatriz Freeman Discharge Planning/Care Management CM Discharge Assessment Start: 02/09/21 11:29 Freq: Status: Active Protocol: Document 02/09/21 11:30 HS (Rec: 02/09/21 12:06 HS [id number]) Discharge Planning Assessment Assigned Infection Preventionist Beatriz Freeman DPOA/Assigned Designee Name Sivan Reyes Contact Information [phone] Advance Directives? No History Provided By Patient,Medical Record Has Patient been admitted in last 30 No days? Prior Living Arrangements House Household Members spouse Type of transporation used prior to Relies on Others admit Independent with ADL's Yes Is patient alert and oriented? Yes Caregiver for Another No Barriers to Discharge No Discharge Plan Home Referrals Initiated None needed Whiteboard Updated in Patient Room with Yes name and ext. # of Infection Preventionist Review Status In Process Next Review Type Continued Stay Review
--- NOTE | 2021-02-09 13:39 | PT.IIE ---
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 Essential hypertension GERD (gastroesophageal reflux disease) History of stroke associated with blood clotting tendency Lumbar compression fracture Obstructive sleep apnea on CPAP Restless leg syndrome Physical Therapy Inpatient Evaluation/Re-Eval M1 PT/OT-IP Prior Functional Status Start: 02/09/21 14:49 Freq: NEEDED Status: Active Protocol: Document 02/09/21 13:39 [facility] (Rec: 02/09/21 14:59 [facility] [id number]) Medical Review Prior Functional Status Medical History Reviewed Yes Diet/Fluid Consistency Regular Communication [place] Mobility and Gait Indep w/gait- uses a cane if he is tired but otherwise no AD most of the time Activities of Daily Living and IADL's indep w/ADLs. does all the cooking at home Social History Household Members spouse Living Arrangements House Number of Floors (Floors) One Floor Number of Stairs To Enter/Railing? 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; family also has a home in [place], [place] M2 PT-IP Current Condition Start: 02/09/21 14:49 Freq: NEEDED Status: Active Protocol: Document 02/09/21 13:39 [facility] (Rec: 02/09/21 14:59 [facility] [id number]) Physical Therapy Current Condition Current Condition Evaluation Date 02/09/21 Treatment Diagnosis syncope, difficulty in walking M3 PT-IP Subjective Start: 02/09/21 14:49 Freq: NEEDED Status: Active Protocol: Document 02/09/21 13:39 [facility] (Rec: 02/09/21 14:59 [facility] [id number]) Subjective Physical Therapy Visit Type Type Initial Evaluation Visit Start Time 13:06 Visit Stop Time 13:39 Total Visit Minutes 33 Number of DAMAGE CUTTER Visits 0 M4 PT-IP Mobility and Gait Start: 02/09/21 14:49 Freq: NEEDED Status: Active Protocol: Document 02/09/21 13:39 [facility] (Rec: 02/09/21 14:59 [facility] [id number]) PT-Bed Mobility Assessment Supine to Sit Supine to Sit Independent Sit to Supine Sit to Supine Independent Scooting Scooting to Edge of Bed Independent Scooting Up and Down in Bed Independent PT-Transfer Assessment Sit to and From Stand Sit to and from Stand Standby Assistance,Use of Upper Extremities Equipment Transfer Assistive Device Gait Belt Orthotic/Prosthetic Devices or Brace: No Comments Mobility Comments supine to sit indep. supine BP : 119/74 > seated 98/52> after 2 min 117/64> stand 89/52> 2 min 93/51> after 2 more min 98 /62 w/reports of feeling wobbly on his feet and feeling a little flushed. CGA when standing Pt sat back down and BP 118/70> stand 92/53 w/in 2 min feeling wobbly on his feet and BP 86/56> pt to sit then sit to supine indep 125/75 BP. MD was informed. Pt left w/ call light in reacha nd at bedside. Gait Assessment Comments Gait Comments n/t d/t BP Stair Climbing Assessment Comments Stair Climbing Comments not tested d/t BP PT-Balance Assessment Sitting Balance and Reactions Static Sitting Balance Ability Good Dynamic Sitting Balance Ability Good Standing Balance and Reactions Static Standing Balance Ability Good Dynamic Standing Balance Ability Fair Device Used none M5 PT-IP Objective Assessments Start: 02/09/21 14:49 Freq: NEEDED Status: Active Protocol: Document 02/09/21 13:39 [facility] (Rec: 02/09/21 14:59 [facility] [id number]) Orientation Orientation/Cognition Level of Alertness Alert Language Function Ability Hard of Hearing Safety Awareness Understands Safety Issues Memory Description No Deficits Noted Strength Lower Extremity Strength Hip grossly 4/5 for BLEs throughout M6 PT-IP Treatment Start: 02/09/21 14:49 Freq: NEEDED Status: Active Protocol: Document 02/09/21 13:39 [facility] (Rec: 02/09/21 14:59 [facility] [id number]) Physical Therapy Treatment Education Education Provided Safety Other Treatments Other Treatment Performed discussed w/pt when at home safety w/sit to stand and getting up from supine. instructed to sit at EOB for a coupe min after sitting up and stand at EOB for a couple min before walking. Edu that if he starts having legs feel shakey then to sit down immediately as his BP was likely dec. M7 PT-IP Assessment and Plan Start: 02/09/21 14:49 Freq: NEEDED Status: Active Protocol: Document 02/09/21 13:39 [facility] (Rec: 02/09/21 14:59 [facility] [id number]) PT Summary Assessment and Plan Potential Rehabilitation Potential Good Status of Condition at Evaluation Unstable Summary Impairments Balance,Sensation,Transfers, Gait Assessment Summary Pt presents w/syncope episode at home overnight w/now issues w/orthostatic hypotension which is the main limitor w/ his mobility. His HR was between 93-104 w/this activity and O2 95%. He did well with mobility but when standing for any length of time, he would get wobbly and start to waver side to side some. He is not able to mobilize safely at this time, so will cont to require PT to work on mobility safety while hospitalized. Goals Bed Mobility Goal Independent Transfer Goal Independent Gait Goal Independent Gait Distance 150ft Other Goals up/down 3 steps w/o rail SBA Days to Meet Goals 6 Frequency of Treatment Frequency Of Treatment Once a Day Treatment Plan Physical Therapy Treatment Plan Transfer Training,Gait Training,Therapeutic Exercise, Balance Retraining,Discharge Planning,Neuromuscular Re-ed Other Recommendations and Next Treatment check BP and work on gait and Focus balance & home safety Weight Bearing Status Weight Bearing Status Full Weight Bearing Recommendations To Nursing Amount of Assist Needed 1 Person Assist Discharge Recommendations PT Discharge Recommendations Home with Assistance, Outpatient PT Other Discharge Recommendations OP PT for balance and mobility Transportation Needs at Discharge Private Vehicle
--- NOTE | 2021-02-09 14:59 | PM.PN.1 ---
Subjective Subjective Date Patient Seen: 02/09/21 Interval history: 75-year-old male with a history of essential hypertension, LIA/CPAP, proximal atrial fibrillation with watchman device, and had clot retrieval for a left-sided stroke 4 years ago, chronic pain from spinal fx, and GERD admitted due to syncope. He had initially presented to ER for URRUTIA and thought to be in CHF and discharged on home Lasix. He then presented back to ER the following day after episode of syncope which appears related to the Lasix. His echo shows normal LV size and function. Patient was symptomatically orthostatic with PT today with blood pressure dropping to 90/50 on standing. He has been variably tachycardic up to 150 this morning before a.m. meds but generally in the low 100s. Also potassium has been on the low side 3.6 on admit, 3.3 this a.m. Exam Vital Signs (past 8 hours): - 02/09/21 07:32 02/09/21 08:52 02/09/21 09:00 Temperature Pulse Rate 112 H Pulse Rate [Orthostatic Lying] 112 H Pulse Rate [Orthostatic Sitting] 141 H Pulse Rate [Orthostatic Standing] 148 H Respiratory Rate 16 Blood Pressure Blood Pressure [Orthostatic Lying] 138/70 Blood Pressure [Orthostatic Sitting] 140/76 Blood Pressure [Orthostatic Standing] 140/83 Pulse Oximetry 95 95 02/09/21 09:10 02/09/21 10:15 02/09/21 11:43 Temperature Pulse Rate 155 H 109 H Pulse Rate [Orthostatic Lying] Pulse Rate [Orthostatic Sitting] Pulse Rate [Orthostatic Standing] Respiratory Rate Blood Pressure 140/83 Blood Pressure [Orthostatic Lying] Blood Pressure [Orthostatic Sitting] Blood Pressure [Orthostatic Standing] Pulse Oximetry 94 02/09/21 11:58 02/09/21 12:08 Temperature 97.4 F L Pulse Rate 99 H Pulse Rate [Orthostatic Lying] Pulse Rate [Orthostatic Sitting] Pulse Rate [Orthostatic Standing] Respiratory Rate 17 Blood Pressure 112/58 L Blood Pressure [Orthostatic Lying] Blood Pressure [Orthostatic Sitting] Blood Pressure [Orthostatic Standing] Pulse Oximetry 96 96 Oxygen Delivery Method Room Air Oxygen Flow Rate 0 Narrative Exam Narrative: General: Alert and pleasant and cooperative male Lungs: Clear Heart: Irregularly irregular with tachycardia Extremities: No edema Neurological: Affect normal, oriented to person and place but probably some memory deficit present Objective Labs Result Diagrams: 02/09/21 04:15 02/09/21 04:15 Labs: Laboratory Results - last 24 hr 02/08/21 02/08/21 02/08/21 15:44 15:44 15:44 WBC 10.3 RBC 4.58 Hgb 14.4 Hct 41.2 MCV 90.1 MCH 31.4 MCHC 34.9 RDW 13.4 Plt Count 236 Neut % (Auto) 81.2 H Lymph % (Auto) 8.8 L [place] % (Auto) 4.3 Eos % (Auto) 3.9 Baso % (Auto) 1.8 Neut # (Auto) 8400 H Lymph # (Auto) 900 L [place] # (Auto) 400 Eos # (Auto) 400 Baso # (Auto) 200 H PT INR APTT Sodium 139 Potassium 3.4 Chloride 101 Carbon Dioxide 30 BUN 22 H Creatinine 1.03 Estimated GFR > 60.0 BUN/Creatinine Ratio 21.4 Glucose 127 H Calcium 9.5 Magnesium 1.8 Total Bilirubin 0.6 AST 31 ALT 31 Alkaline Phosphatase 71 Total Creatine Kinase 34 L CK-MB (CK-2) TNP CK-MB (CK-2) Rel Index TNP Troponin I < 0.012 NT-Pro-B Natriuret Pep 782 H Total Protein 7.6 Albumin 4.5 Globulin 3.1 Albumin/Globulin Ratio 1.5 Triglycerides Cholesterol LDL Cholesterol, Calc HDL Cholesterol Lipase 118 TSH Cortisol AM Sample Ethyl Alcohol SARS-CoV-2 (PCR) 02/08/21 02/08/21 02/08/21 15:44 15:44 15:44 WBC RBC Hgb Hct MCV MCH MCHC RDW Plt Count Neut % (Auto) Lymph % (Auto) [place] % (Auto) Eos % (Auto) Baso % (Auto) Neut # (Auto) Lymph # (Auto) [place] # (Auto) Eos # (Auto) Baso # (Auto) PT 13.0 H INR 1.2 APTT 37 H Sodium Potassium Chloride Carbon Dioxide BUN Creatinine Estimated GFR BUN/Creatinine Ratio Glucose Calcium Magnesium Total Bilirubin AST ALT Alkaline Phosphatase Total Creatine Kinase CK-MB (CK-2) CK-MB (CK-2) Rel Index Troponin I NT-Pro-B Natriuret Pep Total Protein Albumin Globulin Albumin/Globulin Ratio Triglycerides Cholesterol LDL Cholesterol, Calc HDL Cholesterol Lipase TSH 0.922 Cortisol AM Sample Ethyl Alcohol < 10 SARS-CoV-2 (PCR) 02/08/21 02/08/21 02/09/21 16:19 18:05 04:15 WBC RBC Hgb Hct MCV MCH MCHC RDW Plt Count Neut % (Auto) Lymph % (Auto) [place] % (Auto) Eos % (Auto) Baso % (Auto) Neut # (Auto) Lymph # (Auto) [place] # (Auto) Eos # (Auto) Baso # (Auto) PT INR APTT Sodium Potassium Chloride Carbon Dioxide BUN Creatinine Estimated GFR BUN/Creatinine Ratio Glucose Calcium Magnesium Total Bilirubin AST ALT Alkaline Phosphatase Total Creatine Kinase CK-MB (CK-2) CK-MB (CK-2) Rel Index Troponin I NT-Pro-B Natriuret Pep Total Protein Albumin Globulin Albumin/Globulin Ratio Triglycerides Cholesterol LDL Cholesterol, Calc HDL Cholesterol Lipase TSH Cortisol AM Sample 3.58 L Ethyl Alcohol SARS-CoV-2 (PCR) Negative Negative 02/09/21 02/09/21 02/09/21 04:15 04:15 04:15 WBC 8.7 RBC 4.37 L Hgb 13.6 Hct 39.3 L MCV 89.9 MCH 31.1 MCHC 34.6 RDW 13.4 Plt Count 216 Neut % (Auto) 58.3 D Lymph % (Auto) 24.0 L [place] % (Auto) 10.2 Eos % (Auto) 6.8 H Baso % (Auto) 0.7 Neut # (Auto) 5000 Lymph # (Auto) 2100 [place] # (Auto) 900 Eos # (Auto) 600 H Baso # (Auto) 100 PT INR APTT Sodium 139 Potassium 3.3 L Chloride 103 Carbon Dioxide 31 BUN 26 H Creatinine 1.01 Estimated GFR > 60.0 BUN/Creatinine Ratio 25.7 H Glucose 106 Calcium 9.1 Magnesium 1.8 Total Bilirubin AST ALT Alkaline Phosphatase Total Creatine Kinase CK-MB (CK-2) CK-MB (CK-2) Rel Index Troponin I 0.014 NT-Pro-B Natriuret Pep 636 H Total Protein Albumin Globulin Albumin/Globulin Ratio Triglycerides 102 Cholesterol 190 LDL Cholesterol, Calc 130 H HDL Cholesterol 40 Lipase TSH Cortisol AM Sample Ethyl Alcohol SARS-CoV-2 (PCR) [facility] Medical History (Updated 02/08/21 @ 22:33 [facility] Chronic back pain 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 Acute syncope, due to hypovolemia, present on admission, active -secondary to furosemide diuretic started on ER visit 02/07 -orthostatic with PT 02/09 -provide IV fluid bolus and encourage fluid intake -discontinue furosemide -discontinue HCTZ -reassess orthostatics in a.m. 2. Atrial fibrillation with RVR, undetermined if paroxysmal or chronic -patient has been in continuous AFib with RVR likely cause of his recent dyspnea on exertion -ECHO: Normal LV size and EF, aortic sclerosis without stenosis, moderate AR -continue metoprolol ER 50 mg a.m., add metoprolol ER 25 mg p.m. -provide additional p.o. KCl to get serum K greater than 4.0 -continue telemetry monitoring -continue aspirin 81 mg q.d. -patient has Watchman device and does not need oral anticoagulant -repeat BMP in a.m. 3. Essential hypertension, chronic -reported home blood pressures have typically run in the 130s but patient seems sensitive to volume status -stop furosemide and HCTZ -decrease losartan to 50 mg q.d. -metoprolol ER adjusted as for AFib management 4. Depression secondary to stroke, chronic, present on admission -stopping patient's protriptyline due to potential adverse cardiac affects and not clear he still needs it 5. Restless leg syndrome, chronic, present on admission -continue patient's Mirapex 6. Chronic low back pain secondary to compression fractures of the lumbar, chronic, present on admission -continue patient's hydrocodone 5/325 b.i.d. 7. GERD, chronic, present on admission -will substitute Protonix for patient's omeprazole Code status:? Full Surrogate decision maker:? Spouse Sivan small DVT/VTE prophylaxis: Enoxaparin Admission status: Admitted to observation but may meet inpatient criteria Disposition: Home when medically stable, hopefully tomorrow. Patient recently relocated here from [facility] and will need to establish with local PCP and Cardiology. Time Spent With Patient Critical Care time: I spent a total of [] minutes of critical care time on this patient's care today; this time is exclusive of procedural time. Quality VTE Deep Vein Thrombosis/Pulmonary Embolism Present on Admission: No
[2021-02-09] MEDS: SODIUM CHLORIDE 0.9% 1,000 ML 500 ML IV (15:12)
[2021-02-09] MEDS: SENNOSIDES 8.6 MG TABLET 17.2 MG PO (20:27)
[2021-02-09] MEDS: METOPROLOL ER 25 MG TABLET PO (20:29)
[2021-02-10] VITALS (11 sets, daily range): BP systolic 126–144; BP diastolic 60–78; PULSE 75–95; RESP 16–17; TEMP 36.3–36.8; O2SAT 97–99
[2021-02-10 04:56] LABS: BUN Creatinine Ratio 28.1 (6-22); Blood Urea Nitrogen 27 mg/dL (9-20); Calcium 9.1 mg/dL (8.4-10.2); Carbon Dioxide 31 mmol/L (22-32); Chloride 104 mmol/L (98-107); Estimated Glomerular Filt Rate > 60.0 mL/min (>60); Glucose 96 mg/dL (80-110); HEMOLYSIS < 15 (0-50); Sodium 139 mmol/L (137-145)
[2021-02-10] MEDS: PANTOPRAZOLE DR 20 MG TABLET PO (07:19)
[2021-02-10] MEDS: SODIUM CHLORIDE 0.9% FLUSH 10 ML IV (08:18)
[2021-02-10] MEDS: PRAMIPEXOLE 0.25 MG TABLET PO (08:27)
[2021-02-10] MEDS: HYDROCODONE/ACET 5/325 TABLET 1 TAB PO (08:27)
[2021-02-10] MEDS: METOPROLOL ER 25 MG TABLET 50 MG PO (08:28)
[2021-02-10] MEDS: ASPIRIN EC 81 MG TABLET PO (08:28)
[2021-02-10] MEDS: LOSARTAN 50 MG TABLET PO (08:29)
[2021-02-10] MEDS: ENOXAPARIN 40 MG/0.4 ML SYRINGE SUBCUT (09:05)
--- NOTE | 2021-02-10 10:56 | PT.IPTN ---
Physical Therapy Treatment Note M2 PT-IP Current Condition Start: 02/09/21 14:49 Freq: NEEDED Status: Active Protocol: Document 02/09/21 13:39 [facility] (Rec: 02/09/21 14:59 [facility] [id number]) Physical Therapy Current Condition Current Condition Evaluation Date 02/09/21 Treatment Diagnosis syncope, difficulty in walking M3 PT-IP Subjective Start: 02/09/21 14:49 Freq: NEEDED Status: Active Protocol: Document 02/10/21 10:48 [facility] (Rec: 02/10/21 10:56 [facility] [id number]) Subjective Physical Therapy Visit Type Type Treatment Note Visit Start Time 10:25 Visit Stop Time 10:41 Total Visit Minutes 16 Number of DIPLOMA DENTAL ASSISTANT Visits 1 M4 PT-IP Mobility and Gait Start: 02/09/21 14:49 Freq: NEEDED Status: Active Protocol: Document 02/10/21 10:48 [facility] (Rec: 02/10/21 10:56 [facility] [id number]) PT-Bed Mobility Assessment Supine to Sit Supine to Sit Independent Sit to Supine Sit to Supine Independent Scooting Scooting to Edge of Bed Independent Scooting Up and Down in Bed Independent PT-Transfer Assessment Sit to and From Stand Sit to and from Stand Independent,Use of Upper Extremities Equipment Transfer Assistive Device Gait Belt Orthotic/Prosthetic Devices or Brace: No Transfers Transfer Destination Bed Transfer Technique ambulated Transfer Ability Level of Assist Independent Comments Mobility Comments Pt independent with all mobility. BP stable. Pt ambulated in hallway SBA 300' without incident. No SOB or LOB or dizziness. Gait Assessment Comments Gait Comments see above comments Stair Climbing Assessment Comments Stair Climbing Comments ref M5 PT-IP Objective Assessments Start: 02/09/21 14:49 Freq: NEEDED Status: Active Protocol: Document 02/09/21 13:39 [facility] (Rec: 02/09/21 14:59 [facility] [id number]) Orientation Orientation/Cognition Level of Alertness Alert Language Function Ability Hard of Hearing Safety Awareness Understands Safety Issues Memory Description No Deficits Noted Strength Lower Extremity Strength Hip grossly 4/5 for BLEs throughout M6 PT-IP Treatment Start: 02/09/21 14:49 Freq: NEEDED Status: Active Protocol: Document 02/10/21 10:48 [facility] (Rec: 02/10/21 10:56 [facility] [id number]) Physical Therapy Treatment Education Education Provided Safety M7 PT-IP Assessment and Plan Start: 02/09/21 14:49 Freq: NEEDED Status: Active Protocol: Document 02/10/21 10:48 [facility] (Rec: 02/10/21 10:56 [facility] [id number]) PT Summary Assessment and Plan Potential Rehabilitation Potential Good Status of Condition at Evaluation Unstable Summary Impairments Balance,Sensation,Transfers, Gait Assessment Summary Pt had no difficulty with mobility and ambulation. He has PT goals and is safe to dc home with . Goals Bed Mobility Goal Independent Transfer Goal Independent Gait Goal Independent Gait Distance 150ft Other Goals up/down 3 steps w/o rail SBA Days to Meet Goals 6 Frequency of Treatment Frequency Of Treatment Once a Day Treatment Plan Physical Therapy Treatment Plan Transfer Training,Gait Training,Therapeutic Exercise, Balance Retraining,Discharge Planning,Neuromuscular Re-ed Other Recommendations and Next Treatment check BP and work on gait and Focus balance & home safety Weight Bearing Status Weight Bearing Status Full Weight Bearing Recommendations To Nursing Amount of Assist Needed Standby Assistance Discharge Recommendations PT Discharge Recommendations Home with Assistance, Outpatient PT Other Discharge Recommendations OP PT for balance and mobility Transportation Needs at Discharge Private Vehicle
--- NOTE | 2021-02-10 11:56 | PC.NURSE ---
Day shift: Paperwork signed and all questions answered. Pt has all personal belongings. Pt's spouse was handed new MD scripts. Encouraged to check BP and HR when at home. Pt will stay for lunch and then go home. He will be taken to car in by ANISA Lindsey. Pt's spouse is driving them both home to [place]. Pt will be leaving AC unit today prior to 1300.
--- NOTE | 2021-02-10 13:01 | PC.NURSE ---
Day shift: Pt left AC unit a tapprox 1302. See previous note.
--- NOTE | 2021-02-10 13:51 | P.DS_ITS ---
History of Present Illness History of Present Illness Chief complaint: Near syncope/ fall Narrative: Per Sirena Argueta: Antoine Reyes ?is a 75-year-old male with a history of essential hypertension, LIA/CPAP, proximal atrial fibrillation with watchman device, and had clot retrieval for a left-sided stroke 4 years ago, chronic pain from spinal fx, and GERD. Was seen in ED yesterday for SOB and he was in AFib with an elevated heart rate but improved to the 90s during his stay.?His paroxysmal atrial fibrillation has become increasingly more frequent recently.? Patient is on metoprolol, protriptyline, [place] twice daily for chronic back pain and compression fractures, pramipexole, losartan, hydrochlorothiazide and aspirin 81 mg daily.? He has not ever had any cardiac stents.? Today at home he had his Lasix 40 mg prescribed from the ED last night.? He got up at about 215 to go the bathroom and passed out.? He was sitting on the toilet when he urinated.? His was with him and caught him lowering him to the ground.? He did have a loss of consciousness she states for a couple seconds.? He lost tone completely.? He shortly recovered.? He did not hit his head. He denies headache, chest pain.? He does have shortness of breath with exertion, but is resolved upon admit, denies changes in vision, weakness, abd pain, nausea vomiting, diarrhea, constipation, urinary symptoms, has had UTI 's in the past.? He denies swelling in his extremities, fevers, cough, cold, congestion, hematemesis, hematuria, or melena, recent illness injury or trauma.? Patient did have a dose of Lasix yesterday here in the ED 40mg as well as his home dose of Lasix.? His states that he seems to be very sensitive to his fluid status and has passed out in the past due to volume depletion r/t lasix tx.? He does not feel lightheaded while sitting in the bed but states when he sits up or stands upright he does.? His p assumption general medical center care is Dr. Gambino, and Cryptologic Technician Technical Dr. Mckinney in [facility], they have recently made Paige their full time staff interpreter home & need Cardiology & PCP referrals. Upon admit patient is resting comfortably in bed denies any signs or symptoms at this time.? Vital signs upon admit are stable temp 97.6?, BP 118/64, HR 93, R 18, O2 saturation 97% on room air.? Patient presented to the ED with a heart rate 110-130 and was given 5 mg of IV metoprolol.? Patient's CBC was unremarkable with the exception of neut# a 1400,Baso # 200.? Chemistries were all WNL, patient's troponin x2 were WNL, BNP 782 only a mild elevation when adjusted for age.? No edema or fluid overloaded appreciated.? Bhanu Vasc score: 4.? Chest x-ray negative for any acute cardiopulmonary processes, EKG I personally reviewed in ED atrial fibrillation with RVR with a rate of 108.? Patient admitted for syncope likely related to a combination of volume depletion from Lasix and atrial fibrillation with RVR, possible heart failure exacerbation. Discharge Providers Provider Date of admission: 02/10/21 08:53 Discharge Date: 02/10/21 Consults: 02/08/21 20:24 Consult to Respiratory Therapy Evaluate & Treat Comment: LIA, needs CPAP Physician Instructions: Evaluate and treat 02/08/21 20:46 Consult to Cardiology Routine Comment: Consulting Provider: Nori Keating Reason for consultation: Pt needs to referral/est. Care -worsening AFIB/watchman Has provider been notified: No 02/08/21 22:25 Consult to Physical Therapy Evaluate & Treat Comment: Fall risk, syncope Physician Instructions: Evaluate and Treat Discharge provider: Elvin Grayson MD Summary Hospital Course Discharge Diagnosis: 1. Acute syncope 2. Atrial fibrillation with RVR 3. Hypertension 4. Depression 5. Restless leg syndrome 6. Chronic low back pain 7. GERD Hospital Course: Mr. Reyes was admitted to the hospital after having a syncopal event. He was on both lasix (recently started) and HCTZ and was thought to the orthostatic and hypovolemic due to these medications. He was given fluid and his symptoms improved. Additionally he was found to be in afib with RVR which was likely the cause of his shortness of breath. His ECHO showed normal EF with moderate AR. His metoprolol was increased from metoprolol 50mg XL daily to 50mg in the AM and 25mg in the PM and his heart rate came under control. He is noted to have a Watchman device. His anti-hypertensives were decreased, losartan from 50mg BID to 50mg daily. He felt well on day of discharged and was able to go home. He was referred to cardiology. He should follow up with his PCP in 1-2 weeks. Exam Vital Signs (past 8 hours): - 02/10/21 06:42 02/10/21 07:40 02/10/21 08:00 Temperature 98.1 F Pulse Rate Pulse Rate [Orthostatic Lying] 75 Pulse Rate [Orthostatic Sitting] 91 H Pulse Rate [Orthostatic Standing] 92 H Respiratory Rate 16 Blood Pressure Blood Pressure [Orthostatic Lying] 143/78 H Blood Pressure [Orthostatic Sitting] 135/70 Blood Pressure [Orthostatic Standing] 126/60 Pulse Oximetry 98 99 99 02/10/21 08:28 02/10/21 08:29 02/10/21 08:58 Temperature Pulse Rate 95 H 87 Pulse Rate [Orthostatic Lying] Pulse Rate [Orthostatic Sitting] Pulse Rate [Orthostatic Standing] Respiratory Rate Blood Pressure 143/78 H Blood Pressure [Orthostatic Lying] Blood Pressure [Orthostatic Sitting] Blood Pressure [Orthostatic Standing] Pulse Oximetry 02/10/21 09:58 02/10/21 11:30 Temperature 98.2 F Pulse Rate 90 Pulse Rate [Orthostatic Lying] Pulse Rate [Orthostatic Sitting] Pulse Rate [Orthostatic Standing] Respiratory Rate 17 Blood Pressure 135/69 Blood Pressure [Orthostatic Lying] Blood Pressure [Orthostatic Sitting] Blood Pressure [Orthostatic Standing] Pulse Oximetry 98 98 Oxygen Delivery Method Room Air Oxygen Flow Rate 0 Narrative Exam Narrative: General:? Alert and pleasant and cooperative male Lungs:? Clear Heart:? Irregularly irregular with tachycardia Extremities:? No edema Neurological:? 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 Reyes came in with a fast heart rate and also passed out. His ECHO showed good function of his heart. His metoprolol was increased to 50mg in the morning, and 25mg in the night to help control his heart rate. His lasix and HCTZ were stopped as they likely contributed to him passing by causing too much fluid removal. He should follow closely with his PCP to monitor his blood pressure. Discharge orders & Medications Discharge Orders: Discharge (Order); Ordered 02/10/21 Ordered By: Elvin Grayson Prescriptions: New losartan 50 mg Tablet 50 mg PO DAILY Qty: 30 0RF metoprolol succinate 25 mg Tablet Extended Release 24 Hr 25 mg PO BEDTIME Qty: 30 0RF Continued pramipexole 0.25 mg tablet 0.25 mg PO BID 0RF metoprolol succinate 25 mg tablet extended release 24 hr 50 mg PO DAILY 0RF protriptyline 10 mg tablet 10 mg PO BID 0RF hydrocodone-acetaminophen 5-325 mg tablet 1 tab PO BID 0RF aspirin 81 mg 81 mg PO DAILY 0RF omeprazole 20 mg 20 mg PO BEDTIME 0RF Discontinued hydrochlorothiazide 12.5 mg tablet 12.5 mg PO DAILY 0RF losartan 50 mg tablet 50 mg PO BID 0RF furosemide [Lasix] 40 mg tablet 40 mg PO DAILY Qty: 5 0RF Follow up/Referrals: Nori Keating MD [Physician] - Diet/Activity/Treatments Diet: Diet as Tolerated Visit Report/Discharge Packet Instructions: DI for Syncope in Adults (Fainting), Fainting, How to Prevent Falls Quality VTE Deep Vein Thrombosis/Pulmonary Embolism Present on Admission: No
== END 2021-02-10 13:03 | disposition home or self-care (01) | DRG 312 ==
LOC: ED 18:03 → AC 18:13
PROVIDERS: Nurse Practitioner Family; Admitting Provider Internal Medicine; Emergency Provider Emergency Medicine; Referring Provider Emergency Medicine; Visit Provider Internal Medicine
DX: I95.2 Hypotension due to drugs (principal); T50.1X5A Adverse effect of loop [high-ceiling] diuretics, initial encounter; T50.2X5A Adverse effect of carbonic-anhydrase inhibitors, benzothiadiazides and other diuretics, initial encounter; E86.9 Volume depletion, unspecified; I48.0 Paroxysmal atrial fibrillation; Z95.818 Presence of other cardiac implants and grafts; I10 Essential (primary) hypertension; F32.9 Major depressive disorder, single episode, unspecified; G25.81 Restless legs syndrome; K21.9 Gastro-esophageal reflux disease without esophagitis; G47.33 Obstructive sleep apnea (adult) (pediatric); Z20.822 Contact with and (suspected) exposure to COVID-19; R06.00 Dyspnea, unspecified
CPT/HCPCS: 36415; 71045; 80048; 80053; 80061; 80320; 82533; 82550; 83605; 83690; 83735; 83880; 84145; 84443; 84484; 85025; 85379; 85610; 85730; 87040; 87086; 87147; 87635; 93005; 93306; 94760; 96374; 96375; 97116; 97163; 97535; 99284; 99285; C9803; G0378; J1650; J1940

== ENCOUNTER → 2021-03-08 12:51 | Outpatient (CLI) | payer MEDICARE, OTHER, SELFPAY ==
[2021-02-08 19:06] VITALS: BMI 25.8
[2021-03-08 13:35] LABS: COVID19 -Nasal RAPID Negative (Negative)
== END ==
PROVIDERS: Referring Provider Internal Medicine; Visit Provider Internal Medicine
DX: Z20.822 Contact with and (suspected) exposure to COVID-19 (principal)
CPT/HCPCS: 87635; C9803

== ENCOUNTER → 2021-03-08 12:54 | Outpatient (CLI) | payer MEDICARE, OTHER, SELFPAY ==
[2021-02-08 19:06] VITALS: BMI 25.8
--- NOTE | 2021-03-13 09:53 | PM.PFT.1 ---
Pulmonary Function Test Referral & Results Date Patient Seen: 03/08/21 Requesting provider: Nori Keating Results: The spirometry demonstrates an FVC of 3.53 L which is 89% of predicted. The FEV1 was measured at 2.64 L which is 93% of predicted. The FEV1/FVC ratio was 75 which is 103% of predicted. Following the administration of bronchodilator there was a 41% improvement in FEF 25-75% Lung volumes show an SVC of 3.62 L which is 84% of predicted. The diffusing capacity was measured at 18.41 which is 59% of predicted. No hemoglobin value was provided, so no correction for potential anemia could be made, if appropriate. The maximum voluntary ventilation was normal Interpretation: This study demonstrates probably normal spirometry. There is a moderate reduction diffusing capacity suggesting disease at the capillary alveolar level
== END ==
PROVIDERS: Referring Provider Internal Medicine Cardiovascular Disease; Visit Provider Internal Medicine Cardiovascular Disease
DX: R06.02 Shortness of breath (principal); Z20.822 Contact with and (suspected) exposure to COVID-19; J98.8 Other specified respiratory disorders
CPT/HCPCS: 87635; 94060; 94726; 94729; C9803

== ENCOUNTER 2021-04-05 13:44 | Emergency (ER) | payer MEDICARE, OTHER, SELFPAY ==
[2021-02-08 19:06] VITALS: BMI 25.8
[2021-04-05] VITALS (8 sets, daily range): BP systolic 146–161; BP diastolic 65–74; PULSE 65–89; RESP 18; TEMP 36.8; O2SAT 97–100; BMI 26.4
--- NOTE | 2021-04-05 14:18 | DI.RAD.S_ITS ---
PROCEDURE: XR HIP W PEL IF DONE LT 2V INDICATIONS: left hip pain x3 days no trauma, pain w/bearing weight TECHNIQUE: AP pelvis with lateral view(s) of the left hip(s). COMPARISON: None. FINDINGS: Bones: No fractures or dislocations. Pelvic ring appears intact. No suspicious bony lesions. Mild bilateral hip joint space narrowing and periarticular osteophyte formation. Soft tissues: The visualized bowel gas pattern is normal. No suspicious soft tissue calcifications. IMPRESSION: Bilateral hip osteoarthritis. No acute fracture. No osseous lesion. If symptoms and/or clinical suspicion for pathology persist, further assessment with repeat, or advanced imaging (e.g., CT, MRI, or bone scan) may be helpful for further assessment. Dictated by: Martir Giang M.D. on 04/05/2021 at 14:39 Approved by: Martir Giang M.D. on 04/05/2021 at 14:40
--- NOTE | 2021-04-05 14:19 | ED.LOWEXIN ---
HPI - Extremity Injury (Lower) <DEEPAK Campbell - Last Filed: 04/05/21 19:31> General Chief Complaint: Extremity Injury, Lower Stated Complaint: pain in left hip Time Seen by Provider: 04/05/21 14:09 Source: patient and family Mode of arrival: Wheelchair History of Present Illness HPI Narrative: 76-year-old man with history of AFib on aspirin with a Watchman, GERD, CVA with left-sided deficit, hypertension, LIA who presents to the emergency department complaining of left hip pain for 3 days worse with bearing weight. Patient complains of deep groin pain on the left side which he thinks feels most like bone pain. He denies any trauma, he denies any weakness on that side other than his residual deficit from his CVA. He denies any chest pain, shortness of breath, abdominal pain, edema, leg swelling, skin discoloration, swelling, lump, injury, or any related symptoms. Patient denies any fever, knee pain, foot pain, numbness or tingling, instability, dizziness, balance issues. Related Data Home Medications Medication Instructions Recorded Confirmed hydrocodone 5 mg-acetaminophen 325 1 tab PO BID 02/08/21 02/08/21 mg tablet metoprolol succinate 25 mg 50 mg PO DAILY 02/08/21 02/08/21 tablet,extended release 24 hr pramipexole 0.25 mg tablet 0.25 mg PO BID 02/08/21 02/08/21 protriptyline 10 mg tablet 10 mg PO BID 02/08/21 02/08/21 aspirin 81 mg PO DAILY 02/09/21 02/09/21 omeprazole 20 mg PO BEDTIME 02/09/21 02/09/21 Previous Rx's Medication Instructions Recorded losartan 50 mg tablet 50 mg PO DAILY #30 tab 02/10/21 metoprolol succinate 25 mg 25 mg PO BEDTIME #30 tab 02/10/21 tablet,extended release 24 hr diclofenac sodium 3 % topical gel 1 applic TOPICAL BID PRN #100 g 04/05/21 Allergies Allergy/AdvReac Type Severity Reaction Status Date / Time No Known Drug Allergies Allergy Verified 02/07/21 15:26 Review of Systems <DEEPAK Campbell - Last Filed: 04/05/21 19:31> Review of Systems Narrative: General: denies fever, chills, malaise, sweats, fatigue Head/Neck: denies headache, neck pain, dizziness Eyes: denies visual changes, eye pain Cardio: denies chest pain, palpitations, edema Respiratory: denies dyspnea, cough, orthopnea GI: denies abdominal pain, nausea, vomiting, or diarrhea : denies dysuria, hematuria, urinary retention, frequency or incontinence MSK: Endorses left groin/hip pain, patient states it is difficult to differentiate between bone and tissue pain. 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 Essential hypertension GERD (gastroesophageal reflux disease) History of stroke associated with blood clotting tendency Lumbar compression fracture Obstructive sleep apnea on CPAP Restless leg syndrome Surgical History History of left heart catheterization Presence of Watchman left atrial appendage closure device Family History Father Emphysema lung Mother Diabetes mellitus Social History household members: spouse Smoking Status: Never smoker alcohol intake: current Smoking Status: Never smoker alcohol intake frequency: holidays/special occasions only Substance Use Type: does not use Exam <DEEPAK Campbell - Last Filed: 04/05/21 19:31> Narrative Exam Narrative: Independently reviewed vitals signs and nursing notes. General: Cooperative, comfortable, in no acute distress, well developed and well groomed Head/Neck: Normal visual inspection and supple, atraumatic, no JVD or lymphadenopathy. Normal facial exam Eyes: Pupils equal round and reactive, EOMI, conjunctiva normal, no scleral icterus or injections Nose: External nose normal, nares patent, no rhinorrhea, without purulent drainage Mouth/Throat: uvula midline, moist mucus membranes Cardio: Regular rate and rhythm, no peripheral edema, warm extremities Respiratory: Normal respiratory effort, able to speak in complete sentences without audible wheezing, stridor, or rales. No retractions. GI: Abdomen soft, nontender to palpation x4 quadrants, nondistended, no masses or exquisite tenderness with exam, no flank tenderness MSK: Moves all extremities, neurovascularly intact, left groin with no palpable lump, lymphadenopathy, skin changes, discoloration, edema, ecchymosis, extremities are warm, no edema to lower extremities, pulses are palpable to both feet Skin: Normal capillary refill, no rash Neuro: Normal speech and cognition, normal gait, A&O x3, tone normal, moves all extremities Psych: Mental status is grossly normal, speech is clear, congruent mood, normal affect Initial Vital Signs Initial Vital Signs: Vital Signs Temperature 98.2 F 04/05/21 13:45 Pulse Rate 89 04/05/21 13:45 Respiratory Rate 18 04/05/21 13:45 Blood Pressure 161/74 H 04/05/21 13:45 Pulse Oximetry 98 04/05/21 13:45 Course <DEEPAK Campbell - Last Filed: 04/05/21 19:31> Orders Ordered: Discontinued Medications Acetaminophen (Acetaminophen 325 Mg Tablet) 650 mg PO NOW ONE Stop: 04/05/21 14:59 Last Admin: 04/05/21 15:22 Dose: 650 mg Documented by: CARMEN Hydrocodone Bitart/Acetaminophen (Hydrocodone/Acet 5/325 Tablet) 1 tab PO NOW ONE Stop: 04/05/21 14:58 Last Admin: 04/05/21 15:22 Dose: 1 tab Documented by: CARMEN Ibuprofen (Ibuprofen 400 Mg Tablet) 600 mg PO NOW ONE Stop: 04/05/21 14:58 Last Admin: 04/05/21 15:22 Dose: 600 mg Documented by: CARMEN Vital Signs Vital signs: Vital Signs - 8 hr 04/05/21 13:45 04/05/21 13:51 04/05/21 13:52 Temperature 98.2 F Pulse Rate 89 74 Respiratory Rate 18 18 Blood Pressure 161/74 H 161/72 H Pulse Oximetry 98 99 100 04/05/21 14:00 04/05/21 14:41 04/05/21 15:00 Temperature Pulse Rate 74 70 75 Respiratory Rate Blood Pressure Pulse Oximetry 97 97 97 04/05/21 15:28 04/05/21 15:30 Temperature Pulse Rate 65 71 Respiratory Rate 18 Blood Pressure 146/65 H Pulse Oximetry 98 97 [facility] - Extremity Injury (Lower) <Natalie Yang TedchloeDEEPAK - Last Filed: 04/05/21 19:31> Imaging Data Extremity x-ray #1: Radiologist's Impression: PROCEDURE:? XR HIP W PEL IF DONE LT 2V ? INDICATIONS:? left hip pain x3 days no trauma, pain w/bearing weight ? TECHNIQUE:? AP pelvis with lateral view(s) of the left hip(s).? ? COMPARISON:? None. ? FINDINGS:? ? Bones:? No fractures or dislocations.? Pelvic ring appears intact.? No suspicious bony lesions.? Mild bilateral hip joint space narrowing and periarticular osteophyte formation. ? Soft tissues:? The visualized bowel gas pattern is normal.? No suspicious soft tissue calcifications.? ? ? IMPRESSION:? Bilateral hip osteoarthritis. No acute fracture. No osseous lesion. If symptoms and/or clinical suspicion for pathology persist, further assessment with repeat, or advanced imaging (e.g., CT, MRI, or bone scan) may be helpful for further assessment. ? Dictated by: Martir Giang M.D. on 04/05/2021 at 14:39 ? ? Approved by: Martir Giang M.D. on 04/05/2021 at 14:40 ? [facility] Narrative Medical decision making narrative: 76-year-old male presents to the emergency department complaining of left hip pain which started 3 days ago without trauma or known injury. Patient has a history of AFib, he has a Watchman device, takes 81 mg of aspirin daily, losartan and metoprolol. Patient is complaining of deep left groin pain, he thinks it feels like bone pain, it is worse when he bears weight with ambulation or sitting. It is best with rest or lying supine. Patient denies any known osteoarthritis history. X-ray reveals osteoarthritis of bilateral hips without acute fracture, no osseous lesion, mild bilateral hip joint space narrowing and periarticular osteophyte formation with no suspicious soft tissue calcifications. Patient was recently taken off of protriptyline, hydrocodone, or muscle relaxes for orthostatic hypotension at home and feeling faint. We discussed trying diclofenac gel for pain as 1st line, occasional ibuprofen if taken with food and water, Tylenol, he has tried lidocaine patches and states no relief, and follow up with his primary care provider for physical therapy and or advanced imaging. Patient is without trauma, less likely diagnoses include avascular necrosis, and hernia. Patient understands to follow-up with Dr. Hayder Gambino his primary care provider and was given strict return precautions. Patient is appropriate and amenable to discharge home. Vital signs are stable on repeat examination is unremarkable. Patient has been informed of results. Patient has been given strict return to ER precautions for any new or worsening symptoms. Patient understands to follow up closely with outpatient providers as instructed. Patient understands plan and agrees to discharge home. All questions and concerns answered at this time. Discharge Plan Departure Patient Disposition: Home Clinical Impression: Osteoarthritis Instructions: DI for Hip Pain Activity Restrictions/Additional Instructions: *You have been diagnosed with left hip pain, x-ray shows osteoarthritis of both hips without any asymmetry or other abnormalities. Please call Dr. Gambino and inform him of your visit and your left hip pain and arrange follow-up either with physical therapy, advanced imaging, or pain management. Please stay hydrated and remember to eat food if you are going to take any hydrocodone. That and ibuprofen are acceptable for occasional pain medication, he may take Tylenol every 6 hours as well. I hope that you start feeling better soon, return for any new or worsening pain, concerns, inability to walk, or numbness and tingling in your leg. Please follow-up with Dr. Gambino and have your kidney function labs drawn in a month or so if you have been taking ibuprofen. Please start with the diclofenac gel, take ibuprofen as necessary, Tylenol, and rest. Please have your hip examined in the next week if it is getting worse, or within the next month if it gets better at your follow-up appointment. *What to do: *Please continue to take your regular medications as directed. [x ] New medication prescriptions sent to your pharmacy: [[facility] ] [ ] New medication written as a paper prescription [ ] No new medications given *Please follow up with your primary care provider in 2-3 days, call for an appointment. Let them know you were seen in the Emergency Department and that we ask that you be seen in follow up. We will electronically transmit a record of today's note if your PCP is in our system *If you do not have a primary care provider please contact the [facility] Resource line at [phone]. They will ask some questions about your medical history and help get you set up with a doctor in the community. *Return to Emergency Department if you should have any new, worsening or concerning symptoms, such as [fever greater than 101F, chills, worsening pain, persistent vomiting or other bothersome symptoms] Prescriptions: New diclofenac sodium 3 % gel 1 applic topical BID PRN (Reason: pain) Qty: 100 0RF No Action pramipexole 0.25 mg tablet 0.25 mg PO BID 0RF metoprolol succinate 25 mg tablet extended release 24 hr 50 mg PO DAILY 0RF protriptyline 10 mg tablet 10 mg PO BID 0RF hydrocodone-acetaminophen 5-325 mg tablet 1 tab PO BID 0RF aspirin 81 mg 81 mg PO DAILY 0RF omeprazole 20 mg 20 mg PO BEDTIME 0RF losartan 50 mg Tablet 50 mg PO DAILY Qty: 30 0RF metoprolol succinate 25 mg Tablet Extended Release 24 Hr 25 mg PO BEDTIME Qty: 30 0RF Referrals: [facility] [Provider Group]
[2021-04-05] MEDS: HYDROCODONE/ACET 5/325 TABLET 1 TAB PO (15:22)
[2021-04-05] MEDS: IBUPROFEN 400 MG TABLET 600 MG PO (15:22)
[2021-04-05] MEDS: ACETAMINOPHEN 325 MG TABLET 650 MG PO (15:22)
== END 2021-04-05 15:36 | disposition home or self-care (01) ==
PROVIDERS: Emergency Provider Nurse Practitioner Critical Care Medicine
DX: M16.0 Bilateral primary osteoarthritis of hip (principal)
CPT/HCPCS: 73502; 99283

== ENCOUNTER 2024-02-18 17:46 | Emergency (ER) | payer MEDICARE, OTHER, SELFPAY ==
[2023-09-03 09:37] VITALS: BMI 25.8
[2024-02-18] VITALS (16 sets, daily range): BP systolic 129–168; BP diastolic 59–73; PULSE 56–68; RESP 14–24; TEMP 36.4; O2SAT 94–100; BMI 25.4
--- NOTE | 2024-02-18 18:32 | ED.RECABL ---
HPI - Recheck/Abnormal Lab/Rx General Chief Complaint: Recheck/Abnormal Lab/Rx Stated Complaint: sent by Dr Ghosh, tiredness excessive sleep 22 hrs Time Seen by Provider: 02/18/24 17:57 Source: patient and family Mode of arrival: Wheelchair History of Present Illness HPI narrative: 78-year-old male with history of atrial fibrillation, chronic anticoagulation, history of valvular problem with recent echocardiogram by Dr. Keating, has ongoing fatigue, recent reduction by cardiology nursing in his metoprolol dose from 50 mg in the morning and 25 mg in the evening to 25 mg twice daily. With a reduction in his metoprolol dose he believes there was an increase of some other medication dose but he can not recall what was increased, nor can his at the bedside. He is still feeling fatigued. He had a cough around Thanksgiving from which he recovered, though his still has a bit of a cough recently. No fevers or chills. No frequency or painful urination. No loose stools. No black or red stools. Related Data Home Medications Medication Instructions Recorded Confirmed aspirin 81 mg PO DAILY 02/09/21 01/27/24 omeprazole 20 mg PO BEDTIME 02/09/21 01/27/24 ketoconazole 2 % shampoo topical 07/08/23 01/27/24 losartan 50 mg tablet 50 mg PO DAILY 07/08/23 01/27/24 rosuvastatin 5 mg tablet 5 mg PO DAILY 07/08/23 01/27/24 amlodipine 2.5 mg tablet 2.5 mg PO BID 01/27/24 01/27/24 ferrous sulfate 325 mg (65 mg 325 mg PO DAILY 01/27/24 01/27/24 iron) tablet (Feosol) Previous Rx's Medication Instructions Recorded chlorthalidone 25 mg tablet 12.5 mg (1/2 x 25 mg) PO DAILY #45 01/27/24 tabs duloxetine 30 mg capsule,delayed 30 mg PO BID #180 ea 01/27/24 release hydrocodone 5 mg-acetaminophen 325 1 tab PO BID #60 tabs 01/27/24 mg tablet metoprolol succinate 25 mg 25 mg PO BID #180 tabs 01/27/24 tablet,extended release 24 hr paroxetine HCl 10 mg tablet 10 mg PO DAILY #90 tabs 01/27/24 terbinafine HCl 250 mg tablet 250 mg PO DAILY #90 tabs 01/27/24 Allergies Allergy/AdvReac Type Severity Reaction Status Date / Time No Known Drug Allergies Allergy Verified 02/18/24 18:05 Patient History Medical History (Updated 02/18/24 @ 19:05 by Andrey Myers MD) 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 (05/31/15) Atrial fibrillation with rapid ventricular response GERD (gastroesophageal reflux disease) (07/12/13) Chronic back pain Lumbar compression fracture Restless leg syndrome 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 Obstructive sleep apnea on CPAP (03/1999) History of stroke associated with blood clotting tendency Essential hypertension (09/07/14) Surgical History (Updated 07/08/23 @ 22:05 by Frankie Ghosh MD) History of left heart catheterization Presence of Watchman left atrial appendage closure device Family History Father Emphysema lung Mother Diabetes mellitus Social History household members: spouse Smoking Status: Never smoker alcohol intake: current Smoking Status: Never smoker alcohol intake frequency: holidays/special occasions only Exam Narrative Exam Narrative: GENERAL: Well-developed patient, in mild distress. HEAD: Atraumatic. Normocephalic. EYES: Pupils equal round and reactive. Extraocular motions intact. No scleral icterus. No injection or drainage. ENT: Nose without bleeding, purulent drainage. Throat without erythema, tonsillar hypertrophy or exudate. Airway patent. NECK: Trachea midline. Non tender CARDIOVASCULAR: Regular rate and rhythm without murmurs, gallops, or rubs. RESPIRATORY: Clear to auscultation. Breath sounds equal bilaterally. No wheezes, rales, or rhonchi. GASTROINTESTINAL: Abdomen soft, non-tender, nondistended. EXTREMITIES: No edema or joint tenderness. BACK: Nontender without deformity or crepitance. No flank tenderness. NEURO: AOx3. Motor functions grossly nonfocal SKIN: No rash or erythema of visible areas Initial Vital Signs Initial Vital Signs: Vital Signs Temperature 97.6 F 02/18/24 17:55 Pulse Rate 65 02/18/24 17:55 Respiratory Rate 16 02/18/24 17:55 Blood Pressure 143/62 H 02/18/24 17:55 Pulse Oximetry 98 02/18/24 17:55 Oxygen Delivery Method Room Air 02/18/24 17:55 Course Orders Ordered: ED Orders 02/18/24 21:01 Urinalysis and Microscopic Stat Vital Signs Vital signs: Vital Signs - 8 hr 02/18/24 20:30 02/18/24 20:31 02/18/24 20:31 Pulse Rate 59 L 64 Respiratory Rate 15 14 Blood Pressure 133/60 Pulse Oximetry 98 99 02/18/24 21:00 02/18/24 21:01 02/18/24 21:01 Pulse Rate 60 60 Respiratory Rate 15 17 Blood Pressure 168/70 H Pulse Oximetry 97 97 02/18/24 21:30 02/18/24 21:31 02/18/24 21:31 Pulse Rate 56 L 58 L Respiratory Rate 15 17 Blood Pressure 139/65 Pulse Oximetry 98 98 MDM - Recheck/Abnormal Lab/Rx Lab Data Attestation: I reviewed the patient's lab results. Lab results narrative: White blood cell count 8900, hemoglobin 12.8, platelets [id number] adequate. Basic metabolic panel unremarkable. Liver functions normal. Troponin negative/unmeasurable. TSH normal. Swabs for COVID/flu/RSV were negative 02/18/24 18:50 02/18/24 18:50 Labs: Lab Results 02/18/24 02/18/24 Range/Units 18:50 21:01 WBC 8.9 (4.5-11.0) X10^3/uL RBC 3.96 L (4.5-5.9) X10^6/uL Hgb 12.8 L (13.5-17.5) g/dL Hct 37.8 L (41-53) % MCV 95.5 (80-100) fL MCH 32.2 (26-34) PG MCHC 33.7 (30-36) % RDW 13.3 (11.6-14.8) % Plt Count 214 (150-400) X10^3/uL Neut % (Auto) 63.2 (50-75) % Lymph % (Auto) 22.0 L (25-40) % [place] % (Auto) 11.0 (3-14) % Eos % (Auto) 3.2 (2-4) % Baso % (Auto) 0.6 (0-2) % Neut # (Auto) 5600 (2560-8997) /uL Lymph # (Auto) 2000 (6825-2584) /uL [place] # (Auto) 1000 H (0-900) /uL Eos # (Auto) 300 (0-450) /uL Baso # (Auto) 100 (0-100) /uL Sodium 137 (137-145) mmol/L Potassium 3.9 (3.4-5.1) mmol/L Chloride 102 (98-107) mmol/L Carbon Dioxide 28 (22-32) mmol/L BUN 23 H (9-20) mg/dL Creatinine 1.06 (0.66-1.25) mg/dL Estimated GFR > 60 (>60) mL/min BUN/Creatinine Ratio 21.7 (6-22) Glucose 84 (80-110) mg/dL Calcium 9.0 (8.4-10.2) mg/dL Total Bilirubin 0.2 (0.2-1.3) mg/dL AST 31 (17-59) IU/L ALT 29 (<50) IU/L Alkaline Phosphatase 55 (38-126) U/L Total Creatine Kinase 41 L (55-170) U/L Troponin I < 0.012 (0.01-0.034) ng/mL Total Protein 6.8 (6.3-8.2) g/dL Albumin 4.1 (3.5-5.0) g/dL Globulin 2.7 (1.7-4.1) g/dL Albumin/Globulin Ratio 1.5 (1.0-2.8) Lipase 119 (23-300) U/L TSH 1.94 (0.47-4.68) uIU/mL Urine Color Yellow Urine Appearance Clear Urine pH 5.5 (4.5-8.0) Ur Specific [place] 1.015 (1.000-1.035) Urine Protein Negative (Negative) Urine Glucose (UA) Negative (Negative) g/dL Urine Ketones Negative (NEGATIVE) Urine Occult Blood Negative (Negative) Urine Nitrate Negative (Negative) Urine Bilirubin Negative (NEGATIVE) Urine Urobilinogen 0.2 (0.2) E.U./dL Ur Leukocyte Esterase Negative (NEGATIVE) Urine RBC 0-1/hpf (0-5/HPF) Urine WBC None seen (0-5/HPF) Ur Squamous Epith Cells None seen (0-5/HPF) Urine Bacteria None seen (None) Hyaline Casts 0-1/lpf (None) Ur Culture Indicated? Cult not indicated Vol Urine Centrifuged 10ml (spun) SARS-CoV-2 (PCR) Negative (Negative) Influenza A (RT-PCR) Flu a negative (NEGATIVE) Influenza B (RT-PCR) Flu b negative (NEGATIVE) RSV (PCR) Negative (Negative) Imaging Data Chest x-ray: Radiologist's Impression: [address] [address] XRay Report Signed Patient: Antoine Reyes MR#: [id number] : 1945 Acct:[id number] Age/Sex: 78 / M Date of Service: 02/18/24 Loc: ED Accession Number: [id number] Procedure: XR chest 1V Ordering Provider: Andrey Myers MD PROCEDURE: XR CHEST 1V INDICATIONS: chest pain TECHNIQUE: One view of the chest was acquired. COMPARISON: [facility], CR, XR CHEST 1V, 02/08/2021, 15:32. [facility], CR, XR CHEST 1V, 02/07/2021, 15:35. FINDINGS: Surgical changes and devices: None. Lungs and pleura: Lungs are clear. No pleural effusions or pneumothorax. Mediastinum: Mediastinal contours appear normal. Heart size is enlarged. Bones and chest wall: No suspicious bony lesions. Overlying soft tissues appear unremarkable. IMPRESSION: No acute cardiopulmonary abnormality is seen. Dictated by: Salvatore Garner M.D. on 02/18/2024 at 19:25 Approved by: Salvatore Garner M.D. on 02/18/2024 at 19:25 ECG Data Attestation: I personally reviewed and interpreted this ECG as follows: Interpretation: Atrial fibrillation with ventricular response rate 58, no obvious ST segment elevation or depression changes. QRS 78, QTC 410. MDM Narrative Medical decision making narrative: 78-year-old male with history of atrial fibrillation, chronic anticoagulation, valvular problems, hypertension, with recent decrease dose of metoprolol and increased dose of some other medication he can not name, complains of ongoing fatigue, they contacted on-call primary care clinic, referred to the emergency department. Afebrile, sirs screen negative. No distress. Nontoxic appearing. EKG, chest x-ray, screening lab studies, urinalysis, TSH requested. Patient has murmur, reports echocardiogram done by Dr. Keating of Cardiology, no recent echocardiogram report available in the system, they felt that the results would have been known and were not call back for any concerns. Screening labs unremarkable, urinalysis negative, troponin negative/unmeasurable. TSH normal. We discussed CT head imaging, declined On the monitor his heart rate ranges from 58 through 70, recent decreased dose of metoprolol noted from 50 mg in the morning and 25 mg at night to 25 mg twice daily. Could consider taking half tablet for 12.5 mg twice daily over this weekend, and then call his PCP and/or farmworker general on Thursday. They seemed interested in this plan. They did not want any further workup. They would like to go home. Patient discharged home with . Discharge Plan Departure Patient Disposition: Home Clinical Impression: Fatigue Activity Restrictions/Additional Instructions: Fatigue and malaise of unclear etiology. Referred by phone from your primary care clinic for further evaluation. EKG and blood testing not suggestive of heart attack at this time. Electrolytes unremarkable. No evidence for anemia. Kidney function adequate, liver functions adequate, glucose levels normal. Urinalysis not suspicious for infection. Thyroid function test TSH was normal. You had recent reduction in your metoprolol dose from 50 mg in the morning and 25 mg in the evening to a lower dose regimen of 25 mg twice daily. For now consider reducing the metoprolol dose a little further, taking 1/2 tablet for 12.5 mg twice daily over the weekend, and see if you feel any better. Your heart rate on the monitor arranged from 58-70 most of the time. Your blood pressure was adequate in the emergency department. Drink plenty of fluids. Contact your regular doctor tomorrow Thursday during regular hours for close follow up likely on Thursday perhaps on reduced metoprolol dose. Consider also contacting your farmworker general Dr. Keating to see if any further evaluation is warranted from his standpoint. Return earlier to this/nearest emergency department for any change worsening symptoms or any concerns prior Prescriptions: No Action amlodipine 2.5 mg tablet 2.5 mg PO BID ferrous sulfate [Feosol] 325 mg (65 mg iron) tablet 325 mg PO DAILY duloxetine 30 mg capsule,delayed release(DR/EC) 30 mg PO BID Qty: 180 1RF chlorthalidone 25 mg tablet 12.5 mg PO DAILY Qty: 45 1RF terbinafine HCl 250 mg tablet 250 mg PO DAILY Qty: 90 1RF paroxetine HCl 10 mg tablet 10 mg PO DAILY Qty: 90 1RF metoprolol succinate 25 mg tablet extended release 24 hr 25 mg PO BID Qty: 180 1RF hydrocodone-acetaminophen 5-325 mg tablet 1 tab PO BID Qty: 60 0RF rosuvastatin 5 mg tablet 5 mg PO DAILY ketoconazole 2 % shampoo topical losartan 50 mg tablet 50 mg PO DAILY aspirin 81 mg 81 mg PO DAILY omeprazole 20 mg 20 mg PO BEDTIME Referrals: Frankie Ghosh MD [Primary Care Provider] - Nori Keating MD [Physician] - Stand Alone Forms: Patient Portal/API/Survey
--- NOTE | 2024-02-18 18:55 | EKG_ITS ---
[place] [id number] [place] [address] Test Date: 2024-02-18 Pat Name: Antoine Reyes Department: Room: Gender: Male Tax Accounting Assistant: richard : 1945 Requested By: Order Number: [id number] Reading MD: Antelmo Rivera Measurements Intervals [place] Rate: 58 P: [place]: QRS: -7 QRSD: 78 T: 81 QT: 418 QTc: 410 Interpretive Statements Atrial fibrillation with slow ventricular response Minimal voltage criteria for LVH, may be normal variant ( R in aVL ) Electronically Signed On 02-19-2024 8:17:45 PST by Antelmo Rivera
[2024-02-18 19:00] LABS: Add Manual Diff / Slide Review NO; Basophils Absolute Auto 100 /uL (0-100); Basophils Percent Auto 0.6 % (0-2); Eosinophils Absolute Auto 300 /uL (0-450); Eosinophils Percent Auto 3.2 % (2-4); Hematocrit 37.8 % (41-53); Hemoglobin 12.8 g/dL (13.5-17.5); Lymphocytes Absolute Auto 2000 /uL (1100-4500); Mean Corpuscular HGB Conc 33.7 % (30-36); Mean Corpuscular Hemoglobin 32.2 PG (26-34); Mean Corpuscular Volume 95.5 fL (80-100); Monocytes Absolute Auto 1000 /uL (0-900); Neutrophils Absolute Auto 5600 /uL (1500-7000); Neutrophils Percent Auto 63.2 % (50-75); Platelet Count 214 X10^3/uL (150-400); Red Blood Cell Count 3.96 X10^6/uL (4.5-5.9); Red Cell Distribution Width 13.3 % (11.6-14.8); White Blood Cell Count 8.9 X10^3/uL (4.5-11.0)
[2024-02-18 19:19] LABS: Alanine Aminotransferase 29 IU/L (<50); Albumin 4.1 g/dL (3.5-5.0); Albumin Globulin Ratio 1.5 (1.0-2.8); Alkaline Phosphatase 55 U/L (38-126); Aspartate Aminotransferase 31 IU/L (17-59); BUN Creatinine Ratio 21.7 (6-22); Bilirubin Total 0.2 mg/dL (0.2-1.3); Blood Urea Nitrogen 23 mg/dL (9-20); Carbon Dioxide 28 mmol/L (22-32); Chloride 102 mmol/L (98-107); Creatine Kinase 41 U/L (55-170); Estimated Glomerular Filt Rate > 60 mL/min (>60); Globulin 2.7 g/dL (1.7-4.1); Glucose 84 mg/dL (80-110); HEMOLYSIS < 15 (0-50); Lipase 119 U/L (23-300); Potassium 3.9 mmol/L (3.4-5.1); Sodium 137 mmol/L (137-145); Total Protein 6.8 g/dL (6.3-8.2)
[2024-02-18 19:31] LABS: Troponin I < 0.012 ng/mL (0.01-0.034)
[2024-02-18 19:35] LABS: Influenza A - CEPHEID Flu A NEGATIVE (NEGATIVE); Influenza B - CEPHEID Flu B NEGATIVE (NEGATIVE); Respiratory Syncytial Virus Negative (Negative)
[2024-02-18 19:37] LABS: COVID-19 CEPHEID 4-PLEX PCR Negative (Negative)
[2024-02-18 19:49] LABS: Thyroid Stimulating Hormone 1.94 uIU/mL (0.47-4.68)
[2024-02-18 21:07] LABS: Appearance Urine UA CLEAR; Bilirubin Urine UA NEGATIVE (NEGATIVE); Color Urine UA YELLOW; Glucose Urine UA NEGATIVE (Negative); Ketones Urine UA NEGATIVE (NEGATIVE); Leukocyte Esterase Urine UA NEGATIVE (NEGATIVE); Nitrite Urine UA NEGATIVE (Negative); Occult Blood Urine UA NEGATIVE (Negative); Protein Urine UA NEGATIVE (Negative); Specific Gravity Urine UA 1.015 (1.000-1.035); Urobilinogen Urine UA 0.2 E.U./dL (0.2); pH Urine UA 5.5 (4.5-8.0)
[2024-02-18 21:16] LABS: Bacteria Urine None Seen; Culture Indicated Urine Cult Not Indicated; Hyaline Casts Urine 0-1/LPF; RBC Urine 0-1/HPF (0-5/HPF); Squamous Epithelial Cell Urine None Seen (0-5/HPF); Urine Volume 10mL (spun); WBC Urine None Seen (0-5/HPF)
== END 2024-02-18 22:06 | disposition home or self-care (01) ==
PROVIDERS: Emergency Provider Emergency Medicine; PCP Family Medicine
DX: R53.83 Other fatigue (principal); I48.91 Unspecified atrial fibrillation; I10 Essential (primary) hypertension; Z79.82 Long term (current) use of aspirin
CPT/HCPCS: 0241U; 36415; 71045; 80053; 81001; 82550; 83690; 84443; 84484; 85025; 93005; 99284

== ENCOUNTER → 2024-08-18 10:44 | Outpatient (CLI) | payer MEDICARE, OTHER, SELFPAY ==
[2024-06-17 14:12] VITALS: BMI 25.8
[2024-08-18 11:20] LABS: Hematocrit 38.0 % (41-53); Hemoglobin 12.9 g/dL (13.5-17.5); Mean Corpuscular HGB Conc 34.0 % (30-36); Mean Corpuscular Hemoglobin 32.1 PG (26-34); Mean Corpuscular Volume 94.4 fL (80-100); Platelet Count 220 X10^3/uL (150-400)
[2024-08-18 12:31] LABS: HEMOLYSIS < 15 (0-50); Iron 131 ug/dL (49-181)
[2024-08-18 12:39] LABS: Alanine Aminotransferase 22 IU/L (<50); Albumin 4.6 g/dL (3.5-5.0); Albumin Globulin Ratio 1.8 (1.0-2.8); Alkaline Phosphatase 64 U/L (38-126); Blood Urea Nitrogen 23 mg/dL (9-20); Calcium 9.4 mg/dL (8.4-10.2); Carbon Dioxide 28 mmol/L (22-32); Chloride 99 mmol/L (98-107); Cholesterol 144 mg/dL (140-199); Estimated Glomerular Filt Rate > 60 mL/min (>60); Globulin 2.6 g/dL (1.7-4.1); Glucose 93 mg/dL (70-99); HDL Cholesterol 51 mg/dL (40-60); HEMOLYSIS < 15 (0-50); Potassium 4.0 mmol/L (3.4-5.1); Sodium 137 mmol/L (137-145); Total Protein 7.2 g/dL (6.3-8.2); Triglycerides 96 mg/dL (35-150)
[2024-08-18 12:44] LABS: Percent Iron Saturation 42 % (20-50); Total Iron Binding Capacity 311 ug/dL (261-462); Transferrin 249 mg/dL (206-381)
[2024-08-18 13:08] LABS: Ferritin 79 ng/mL (18-464)
[2024-08-18 13:21] LABS: Vitamin B12 Reflex MMA if <400 360 pg/mL (239-931)
[2024-08-18 15:42] LABS: Vitamin D 25 Hydroxy (D3) 54.3 ng/mL (30.0-100.0)
[2024-08-18 16:33] LABS: Hep C Virus Ab w/Reflex Quant NEGATIVE s/c (NEGATIVE)
== END ==
PROVIDERS: PCP Family Medicine; Referring Provider Family Medicine; Visit Provider Family Medicine
DX: Z12.5 Encounter for screening for malignant neoplasm of prostate (principal); R80.9 Proteinuria, unspecified; I11.0 Hypertensive heart disease with heart failure; I50.32 Chronic diastolic (congestive) heart failure; I48.91 Unspecified atrial fibrillation; E78.5 Hyperlipidemia, unspecified; K21.9 Gastro-esophageal reflux disease without esophagitis; E55.9 Vitamin D deficiency, unspecified; B35.1 Tinea unguium; R53.83 Other fatigue; G47.33 Obstructive sleep apnea (adult) (pediatric); Z99.89 Dependence on other enabling machines and devices; Z80.42 Family history of malignant neoplasm of prostate
CPT/HCPCS: 36415; 80053; 80061; 82306; 82607; 82728; 83540; 83550; 83921; 85027; 85651; 86140; 86803; G0103